=== PATIENT | female | born 1960 | race Caucasian/White ===

== ENCOUNTER → 2020-01-18 10:08 | Outpatient (CLI) | payer OTHER, SELFPAY ==
--- NOTE | ~2020-01-18 | MM_ITS ---
EXAMINATION: MM screening [facility] BI w elvis HISTORY: Screening mammogram TECHNIQUE: Craniocaudal and mediolateral oblique 3-D tomosynthesis images were obtained and synthetic 2-D images were generated. CAD analysis was submitted and interpreted. COMPARISON: Comparison to multiple prior studies sequentially, with oldest reviewed study dated 06/20. BREAST PARENCHYMAL COMPOSITION: There are scattered areas of fibroglandular density. FINDINGS: There is no evidence of suspicious mass, calcification, or architectural distortion to sugg est malignancy in either breast. There has been no suspicious interval change. IMPRESSION: 1. No mammographic evidence of malignancy. 2. Recommend routine screening mammography in one year. BI-RADS Category 1: Negative Reviewed, dictated and finalized at location A.
== END ==
PROVIDERS: PCP Internal Medicine; Visit Provider Nurse Practitioner Family
DX: Z12.31 Encounter for screening mammogram for malignant neoplasm of breast (principal)
CPT/HCPCS: 77063; 77067

== ENCOUNTER 2020-12-26 15:53 | Emergency (ER) | payer OTHER, SELFPAY ==
--- NOTE | ~2020-12-26 | CT_ITS ---
EXAMINATION: CT abdomen pelvis w con DATE: 12/26/2020 18:44 INDICATION: Abdominal pain. TECHNIQUE: Computed tomography (CT) of the abdomen and pelvis was performed with 100 mL Omnipaque-350 intravenous contrast. Automated exposure control and iterative reconstruction technique were employe d. The dose-length product was 383.28 mGy-cm. COMPARISON: None FINDINGS: Side nodule consistent with old granulomatous disease and 4 mm noncalcified nodule, both in the right lower lobe along a linear band of discoid atelectasis. Heart size is normal. No pericardial or pleur al effusion. Small sliding-type hiatal hernia. Mild wall thickening at the gastric pylorus. Liver, ga llbladder, spleen, pancreas, bilateral adrenal glands and kidneys are normal. Bowels including the ap pendix are normal. Bladder is normal. The uterus is not identified and has likely been surgically res ected. No free intraperitoneal gas or fluid. No pathologically enlarged abdominal or pelvic lymphaden opathy. Minimal lumbar spondylosis and mild bilateral hip osteoarthritis. IMPRESSION: 1. Mild wall thickening at the gastric pylorus which could be artifactual due to peristalsis/incomple te distention with differential including focal gastritis or peptic ulcer disease. 2. Small sliding-type hiatal hernia. 3. Indeterminate 4 mm right lower lobe nodule. If the patient is low risk for lung cancer, no follow- up is needed. If the patient is high risk (i.e., history of smoking or asbestos or significant radiat ion exposure), optional follow-up chest CT could be considered at 12 months. Reviewed, dictated and finalized at location A. IMPRESSION: 1. Mild wall thickening at the gastric pylorus which could be artifactual due t o peristalsis/incomplete distention with differential including focal gastritis or peptic ulcer disease. 2. Small sliding-type hiatal hernia. 3. Indeterminate 4 mm right lower lobe nodule. If the patient is low risk for l jerome cancer, no follow-up is needed. If the patient is high risk (i.e., history of smoking or asbestos or significant radiation exposure), optional follow-up c hest CT could be considered at 12 months.
[2020-12-26 16:15] VITALS: BP 126/76; PULSE 78; RESP 18; TEMP 36.2; O2SAT 99
[2020-12-26 16:25] LABS: Basophils Absolute Auto 0.1 K/mm3 (0.0-0.1); Basophils Percent Auto 1.2 % (0.2-1.2); Eosinophils Absolute Auto 0.1 K/mm3 (0-0.3); Eosinophils Percent Auto 2.2 % (0-4.4); Hematocrit 39.3 % (37.0-47.0); Hemoglobin 12.5 g/dL (12.0-15.0); Immature Granulocyte Absolute 0.02 K/mm3 (0.00-0.031); Immature Granulocyte Percent A 0.4 % (0-0.5); Lymphocytes Absolute Auto 2.09 K/mm3 (0.9-3.2); Lymphocytes Percent Auto 41.1 % (18.3-44.2); Mean Corpuscular HGB Conc 31.8 g/dl (32-36); Mean Corpuscular Hemoglobin 26.8 pg (26-34); Mean Corpuscular Volume 84.3 fl (80-100); Mean Platelet Volume 8.7 fl (7.4-10.4); Monocytes Absolute Auto 0.4 K/mm3 (0.1-0.6); Monocytes Percent Auto 8.4 % (2.6-8.5); Neutrophils Absolute Auto 2.4 K/mm3 (1.3-6.7); Neutrophils Percent Auto 46.7 % (45.5-73.1); Platelet Count Result 220 k/mm3 (150-375); Red Blood Count 4.66 M/mm3 (4.2-5.4); Red Cell Distribution Width 12.8 % (11.5-14.5); White Blood Count 5.1 K/mm3 (4.5-10.0)
[2020-12-26 16:30] LABS: Add Urine Microscopic? YES; Appearance Urine Clear (Clear); Bilirubin Urine Negative (Negative); Blood Urine Negative (Negative); Color Urine Yellow (Yellow); Glucose Urine UA Negative (Negative); Ketones Urine Trace mg/dL (Negative); Leukocyte Esterase Ur Negative LEU/UL (Negative); Mucus Urine Rare /lpf; Nitrate Urine Negative (Negative); Protein Urine Negative (Negative); RBC Urine 0-2 /hpf (0-2); Specific Grav Ur 1.028 (1.001-1.035); Squamous Epithelial Cell Urine Rare /hpf (Few); WBC Urine 0-3 /hpf
[2020-12-26 16:36] LABS: Alanine Aminotransferase 17 U/L (4-35); Albumin Level 4.5 g/dL (3.5-5.1); Alkaline Phosphatase 60 U/L (38-126); Anion Gap 8 mmol/L (8-16); Aspartate Amino Transferase 28 U/L (14-36); Bilirubin,Total 0.3 mg/dL (0.2-1.3); Blood Urea Nitrogen 21 mg/dL (7-17); Calcium 9.8 mg/dL (8.4-10.2); Carbon Dioxide 26 mmol/L (22-30); Chloride 108 mmol/L (98-107); Estimated CRCL calculation 71 ml/min; Estimated Glomerular Filt Rate > 60; Glucose 113 mg/dL (65-105); Lipase 140 U/L (23-300); Potassium 3.8 mmol/L (3.4-5.0); Sodium 142 mmol/L (137-145)
[2020-12-26 17:34] VITALS: BP 140/75; PULSE 76; RESP 16; O2SAT 99
--- NOTE | 2020-12-26 17:51 | ED.ABDPAIN ---
HPI - Abdominal Pain General Chief Complaint: Abdominal Pain Stated Complaint: flank pain Time Seen by Provider: 12/26/20 17:34 Source: patient History of Present Illness HPI narrative: Patient is a 60 y/o female complaining of low back pain, lower abdominal pain starting 5 days ago. She describes her pain as sharp and aching. She took Ibuprofen and Hydrocodone which did not help. She rates her pain as 7/10. She has some nausea, but no vomiting. She has no dysuria or hematuria. Related Data Allergies Allergy/AdvReac Type Severity Reaction Status Date / Time povidone Allergy Mild Rash Verified 03/02/20 12:21 povidone-iodine Allergy Mild Verified 03/02/20 12:21 soap Allergy Mild Verified 03/02/20 12:21 Sulfa (Sulfonamide Allergy Mild unknown Verified 03/02/20 12:21 Antibiotics) erythromycin base Allergy Unknown Verified 03/02/20 12:21 iodine Allergy Unknown Verified 03/02/20 12:21 latex Allergy Unknown Verified 03/02/20 12:21 Penicillins Allergy Unknown Verified 03/02/20 12:21 Review of Systems Constitutional: Constitutional: Denies chills, Denies fever(s), Denies headache(s) and Denies weakness Eyes: Eyes: Denies blurry vision ENT: Denies headache(s) and Denies neck pain Cardiovascular: Cardiovascular: Denies chest pain and Denies dyspnea Respiratory: Respiratory: Denies cough and Denies dyspnea Gastrointestinal: Gastrointestinal: Reports abdominal pain, Denies diarrhea, Denies nausea and Denies vomiting Genitourinary: Genitourinary: Denies hematuria and Denies dysuria Musculoskeletal: Musculoskeletal: Reports back pain and Denies neck pain Neurologic: Denies headache(s) and Denies weakness [facility] Family History Family History Other Cerebrovascular accident Depression Diabetes mellitus Family history of alcoholism Family history of arthritis Family history of chronic obstructive pulmonary disease Family history of congestive heart failure Family history of mental disorder Family history of osteoporosis Family history of pancreatic cancer Social History Social History Smoking status: Never smoker Alcohol intake: never Exam Const: General: no acute distress and well developed Orientation/consciousness: oriented to person, oriented to place, oriented to time and patient oriented x3 HENMT: Head: normocephalic Ears: external ears normal General nose exam: Normal external nose present Eyes: General: appearance normal, both eyes and all related structures Conjunctivae: conjunctivae normal Neck: Neck: normal visual inspection and full ROM Chest: Chest palpation & inspection: normal inspection of the chest and no tenderness Resp: Effort & Inspection: normal respiratory effort Auscultation: clear to auscultation bilaterally Cardio: Rate: regular rate Rhythm: regular rhythm GI: GI Palp: No abdominal tenderness and Yes Soft to palpation Skin: General skin exam: normal color and turgor normal Neuro: General: oriented to person, oriented to place, oriented to time and patient oriented x3 Cognition (Neuro): normal cognition Extrem: General: normal to inspection, full ROM and no pedal edema Psych: Appearance: grossly normal Mental Status: mental status grossly normal Affect: normal affect Course Reevaluation(s) Reevaluation #1: Discussed with patient about test results, including CT showing pulmonary nodule and possible ulcer/hiatal hernia. She is instructed to follow up with PCP. Date: 12/26/20 Time: 20:12 Vital Signs Vital signs: Vital Signs Temperature 36.2 C L 12/26/20 16:15 Pulse Rate 78 12/26/20 16:15 Respiratory Rate 18 12/26/20 16:15 Blood Pressure 126/76 12/26/20 16:15 Pulse Oximetry 99 12/26/20 16:15 Temperature 36.2 C L 12/26/20 16:15 Pulse Rate 85 12/26/20 20:18 Respiratory Rate 16 12/26/20 20:18 Blood Pressure 131/75 12/26/20
[2020-12-26] MEDS: KETOROLAC 30 MG/ML VIAL (*BKC) IV PUSH (18:20)
[2020-12-26 20:18] VITALS: BP 131/75; PULSE 85; RESP 16; O2SAT 98
== END 2020-12-26 20:24 | disposition home or self-care (01) ==
PROVIDERS: Emergency Medicine; Emergency Provider Emergency Medicine; PCP Internal Medicine
DX: R10.30 Lower abdominal pain, unspecified (principal); M54.5 Low back pain; R91.1 Solitary pulmonary nodule; K44.9 Diaphragmatic hernia without obstruction or gangrene
CPT/HCPCS: 36415; 74177; 80053; 81001; 83690; 85025; 96374; 99284; J1885; Q9967

== ENCOUNTER → 2021-02-21 16:05 | Outpatient (CLI) | payer OTHER, SELFPAY ==
--- NOTE | ~2021-02-21 | MM_ITS ---
EXAMINATION: MM screening [facility] BI w elvis HISTORY: Screening TECHNIQUE: Craniocaudal and mediolateral oblique 3-D tomosynthesis images were obtained and synthetic 2-D images were generated. CAD analysis was submitted and interpreted. COMPARISON: Comparison to multiple prior studies sequentially, with oldest reviewed study dated 09/15. BREAST PARENCHYMAL COMPOSITION: There are scattered areas of fibroglandular density. FINDINGS: There is no evidence of suspicious mass, calcification, or architectural distortion to sugg est malignancy in either breast. There has been no suspicious interval change. IMPRESSION: 1. No mammographic evidence of malignancy. 2. Recommend routine screening mammography in one year. BI-RADS Category 1: Negative Reviewed, dictated and finalized at location A.
== END ==
PROVIDERS: Visit Provider Nurse Practitioner
DX: Z12.31 Encounter for screening mammogram for malignant neoplasm of breast (principal)
CPT/HCPCS: 77063; 77067

== ENCOUNTER → 2021-10-09 00:23 | Outpatient (CLI) | payer OTHER, SELFPAY ==
[2021-10-09 11:15] LABS: SARS-CoV-2 RNA PCR Negative
== END ==
PROVIDERS: PCP Internal Medicine; Visit Provider Internal Medicine Gastroenterology
DX: Z01.812 Encounter for preprocedural laboratory examination (principal); Z20.822 Contact with and (suspected) exposure to COVID-19
CPT/HCPCS: C9803; U0003; U0005

== ENCOUNTER 2021-10-12 01:11 | Day surgery (SDC) | payer OTHER, SELFPAY ==
[2021-10-03 11:05] VITALS: BMI 23.4
--- NOTE | 2021-10-11 12:35 | PM.HPGS ---
History of Present Illness History of Present Illness Consent: Risks, benefits, and alternatives have been discussed and questions answered. Patient agrees to proceed with procedure. Chief complaint: neoplasm screening Narrative: Sheba Jennings is a 61 year old female referred for colon cancer screening. Her uncle had colon cancer. Her father had pancreatic cancer Review of Systems Review of Systems: All systems reviewed & are unremarkable except as noted in HPI and below PMFSH Family History Family History Other Cerebrovascular accident Depression Diabetes mellitus Family history of alcoholism Family history of arthritis Family history of chronic obstructive pulmonary disease Family history of congestive heart failure Family history of mental disorder Family history of osteoporosis Family history of pancreatic cancer Social History Social History Smoking status: Former smoker Tobacco type: cigarettes Alcohol intake: former Living arrangements: with family Spiritual care concerns: No Meds Home Medications and Allergies Home Medications Medication Instructions Recorded Confirmed Type Symbicort 2 inh PO DAILY 10/03/21 10/12/21 History albuterol sulfate 1 puff INHALATION QID PRN 10/03/21 10/12/21 History calcium carbonate-vitamin D3 1 tablet PO DAILY 10/03/21 10/12/21 History [calcium-vitamin D3] cranberry extract 250 mg PO DAILY 10/03/21 10/12/21 History escitalopram oxalate 10 mg PO DAILY 10/03/21 10/12/21 History ferrous sulfate 325 mg PO DAILY 10/03/21 10/12/21 History fluticasone propionate 1 spray INTRANASAL EVERY OTHER DAY 10/03/21 10/12/21 History metformin 500 mg PO BID 10/03/21 10/12/21 History omeprazole 20 mg PO DAILY 10/03/21 10/12/21 History rosuvastatin 40 mg PO DAILY 10/03/21 10/12/21 History sodium chloride [[place] Nasal] 1 spray INTRANASAL EVERY OTHER DAY 10/03/21 10/12/21 History vitamin E 100 unit PO DAILY 10/03/21 10/12/21 History Allergies Allergy/AdvReac Type Severity Reaction Status Date / Time povidone-iodine Allergy Mild Rash Verified 10/12/21 09:04 Sulfa (Sulfonamide Allergy Mild Itching Verified 10/12/21 09:04 Antibiotics) erythromycin base Allergy Unknown Other Verified 10/12/21 09:04 latex Allergy Unknown Rash Verified 10/12/21 09:04 Penicillins Allergy Unknown Itching Verified 10/12/21 09:04 COVID-19 (SARS-CoV-2) Allergy Numbness Verified 10/12/21 09:04 vaccine, gio Exam Resp: Auscultation: clear to auscultation bilaterally Cardio: Rate: regular rate Rhythm: regular rhythm GI: GI Palp: Yes Soft to palpation and No Tenderness to palpation present (GI) Assessment and Plan Assessment and plan (1) Colon cancer screening: Code(s): Z12.11 - Encounter for screening for malignant neoplasm of colon Status: Acute Assessment and Plan: Colonoscopy with possible biopsy or polypectomy or cautery or injection of substances.
[2021-10-12 09:05] VITALS: BP 132/73; PULSE 85; RESP 18; TEMP 36.5; O2SAT 97; BMI 23.1
[2021-10-12] MEDS: LACTATED RINGERS 1,000 ML 150 ML IV CONT (09:09)
[2021-10-12 09:21] LABS: Glucose Point of Care 136 mg/dl (65-105)
--- NOTE | 2021-10-12 09:40 | WPDANESEPPF ---
Anes - Initial Pre Proc Eval Procedure: Operation Date: 10/12/21 10:00 Proposed Procedures p Screening Colonoscopy - Kings Church MD Date/Time: 10/12/21 09:40 Surgeon: Kings Church MD Pre Op Diagnosis: neoplasm screening Patient Data Age: 61 Gender: F Height: 1.65 m Weight: 63.2 kg Last Vital Signs Temp 36.5 C 10/12/21 09:05 Pulse 85 10/12/21 09:05 Resp 18 10/12/21 09:05 BP 132/73 10/12/21 09:05 Pulse Ox 97 10/12/21 09:05 Allergies Allergy/AdvReac Type Severity Reaction Status Date / Time povidone-iodine Allergy Mild Rash Verified 10/12/21 09:04 Sulfa (Sulfonamide Allergy Mild Itching Verified 10/12/21 09:04 Antibiotics) erythromycin base Allergy Unknown Other Verified 10/12/21 09:04 latex Allergy Unknown Rash Verified 10/12/21 09:04 Penicillins Allergy Unknown Itching Verified 10/12/21 09:04 COVID-19 (SARS-CoV-2) Allergy Numbness Verified 10/12/21 09:04 vaccine, gio Home Medications Medication Instructions Recorded Confirmed Type Symbicort 2 inh PO DAILY 10/03/21 10/12/21 History albuterol sulfate 1 puff INHALATION QID PRN 10/03/21 10/12/21 History calcium carbonate-vitamin D3 1 tablet PO DAILY 10/03/21 10/12/21 History [calcium-vitamin D3] cranberry extract 250 mg PO DAILY 10/03/21 10/12/21 History escitalopram oxalate 10 mg PO DAILY 10/03/21 10/12/21 History ferrous sulfate 325 mg PO DAILY 10/03/21 10/12/21 History fluticasone propionate 1 spray INTRANASAL EVERY OTHER DAY 10/03/21 10/12/21 History metformin 500 mg PO BID 10/03/21 10/12/21 History omeprazole 20 mg PO DAILY 10/03/21 10/12/21 History rosuvastatin 40 mg PO DAILY 10/03/21 10/12/21 History sodium chloride [[place] Nasal] 1 spray INTRANASAL EVERY OTHER DAY 10/03/21 10/12/21 History vitamin E 100 unit PO DAILY 03/16/22 03/25/22 History Laboratory Tests 10/12/21 09:19 POC Capillary Glucose 136 mg/dl H mg/dl (65-105) Patient hx anesthesia problems: none Family hx anesthesia problems: none Results Review: All pre-operative results and documents have been reviewed as part of the pre-operative evaluation. [facility] Past Medical History Medical History Anxiety Asthma Diabetes GERD (gastroesophageal reflux disease) Hx of migraines Hyperlipidemia TIA (transient ischemic attack) Family History Family History Other Cerebrovascular accident Depression Diabetes mellitus Family history of alcoholism Family history of arthritis Family history of chronic obstructive pulmonary disease Family history of congestive heart failure Family history of mental disorder Family history of osteoporosis Family history of pancreatic cancer Social History Social History Smoking status: Former smoker Tobacco type: cigarettes Alcohol intake: former Living arrangements: with family Spiritual care concerns: No Anes - Eval Final PreProcedure Day of Procedure 10/12/21 09:40 Patient weight: normal Heart: regular rate and rhythm Lungs: clear to auscultation Airway: Mallampati scale class II Neurological: alert and oriented Last oral intake: >/= 8 hours ASA classification: III Emergent: no Anesthetic plan: proceed Anesthesia type and monitoring: general GIVS and standard monitoring Results Review: All pre-operative results and documents have been reviewed as part of the pre-operative evaluation. Informed Consent: The patient's anesthetic plan and its attendant risks and benefits were discussed with the patient/family/POA. Questions were solicited and answers provided to the satisfaction of the patient/family/POA.
[2021-10-12 10:11] VITALS: BP 109/66; PULSE 76; RESP 18; O2SAT 98
[2021-10-12 10:21] VITALS: BP 119/73; PULSE 72; RESP 20; O2SAT 100
[2021-10-12 10:31] VITALS: BP 132/64; PULSE 78; RESP 18; O2SAT 100
== END 2021-10-12 10:45 | disposition home or self-care (01) ==
PROVIDERS: PCP Internal Medicine; Visit Provider Internal Medicine Gastroenterology
PROC: 0DJD8ZZ Inspection of Lower Intestinal Tract, Via Natural or Artificial Opening Endoscopic (ICD-10-PCS; CPT 45378; principal; 2021-10-12 10:00)
DX: Z12.11 Encounter for screening for malignant neoplasm of colon (principal); Z80.0 Family history of malignant neoplasm of digestive organs; Z86.16 Personal history of COVID-19; Z79.84 Long term (current) use of oral hypoglycemic drugs; Z79.51 Long term (current) use of inhaled steroids; F41.9 Anxiety disorder, unspecified; K21.9 Gastro-esophageal reflux disease without esophagitis; J45.909 Unspecified asthma, uncomplicated; E11.9 Type 2 diabetes mellitus without complications; Z86.73 Personal history of transient ischemic attack (TIA), and cerebral infarction without residual deficits; E78.5 Hyperlipidemia, unspecified; Z87.891 Personal history of nicotine dependence
CPT/HCPCS: 45378; 82948; C9803; J2704; J7120; U0003; U0005

== ENCOUNTER 2022-08-14 16:08 | Outpatient (CLI) | payer OTHER, SELFPAY ==
--- NOTE | ~2022-08-14 | MM_ITS ---
EXAMINATION: MM screening [facility] BI w elvis HISTORY: Screening mammogram TECHNIQUE: Craniocaudal and mediolateral oblique 3-D tomosynthesis images were obtained and synthetic 2-D images were generated. CAD analysis was submitted and interpreted. COMPARISON: 02/21/2021, 01/18/2020, 10/06/2018 BREAST PARENCHYMAL COMPOSITION: There are scattered areas of fibroglandular density. FINDINGS: No suspicious mass, calcification, or architectural distortion are identified in either mikal ast to suggest malignancy. There has been no suspicious interval change. IMPRESSION: 1. No mammographic evidence of malignancy. 2. Recommend routine screening mammography in one year. BI-RADS Category 1: Negative Reviewed, dictated and finalized at location A. RT AND EXPORT CLERK
== END 2022-08-14 16:09 | disposition home or self-care (01) ==
LOC: ANHIMG 16:26
PROVIDERS: PCP Internal Medicine; Visit Provider Nurse Practitioner
DX: Z12.31 Encounter for screening mammogram for malignant neoplasm of breast (principal)
CPT/HCPCS: 77063; 77067

== ENCOUNTER 2023-10-03 15:59 | Outpatient (CLI) | payer OTHER, SELFPAY ==
--- NOTE | ~2023-10-03 | MM_ITS ---
EXAMINATION: MM screening [facility] w elvis HISTORY: Screening TECHNIQUE: Craniocaudal and mediolateral oblique 3-D tomosynthesis images were obtained and synthetic 2-D images were generated. CAD analysis was submitted and interpreted. COMPARISON: Comparison to multiple prior studies sequentially, with oldest reviewed study dated 09/2015. BREAST PARENCHYMAL COMPOSITION: Not dense: There are scattered areas of fibroglandular density. FINDINGS: There is no evidence of suspicious mass, calcification, or architectural distortion to sugg est malignancy in either breast. There has been no suspicious interval change. IMPRESSION: 1. No mammographic evidence of malignancy. 2. Recommend routine screening mammography in one year. BI-RADS Category 1: Negative Reviewed, dictated and finalized at location A.
== END 2023-10-03 16:00 ==
LOC: MICIMG 16:00
PROVIDERS: PCP Internal Medicine; Visit Provider Obstetrics & Gynecology Gynecology
DX: Z12.31 Encounter for screening mammogram for malignant neoplasm of breast (principal)
CPT/HCPCS: 77063; 77067

== ENCOUNTER 2024-08-25 11:39 | Outpatient (CLI) | payer OTHER, SELFPAY ==
[2024-08-25 12:29] LABS: Strep Group A RT-PCR NOT DETECTED (Negative)
[2024-08-25 12:41] LABS: Influenza A QL RT-PCR Negative (Negative); Influenza B QL RT-PCR Negative (Negative); SARS-CoV-2 RNA PCR Positive (Negative)
--- OUTSIDE RECORDS SUMMARY | 2024-08-25 13:11 | XMS_ITS | Clinical Summary ---
Author Organization [facility] [employer] Address [address] [place] [address] Care Team Providers Care Pattern Scratcher Name Role Phone Johanna Shaw MD Primary Care Provider Source Comments [facility],non-owned Affiliates and Associated Physician Practices is amultiple site organization consisting of ambulatory clinics and hospital sitesin [place], [place], [place] and [place]. This disclosure is being madepursuant to the Care Everywhere program and may not contain all information available regarding this patient. Last updated 18.[facility] [employer] Allergies Active Allergy Reactions Criticality Noted Date Comments Amoxicillin Unknown 02/03/2019 Erythromycin Unknown 02/03/2019 Latex Unknown 02/03/2019 Povidone Iodine Unknown 06/28/2020 Sulfa Drugs Unknown 02/03/2019 Medications * Be aware that medications may not be up to date on this document. Alwaysverify current medications with the patient. Medication Sig Dispensed Refills Start Date End Date Status escitalopram (LEXAPRO) 10 MG tablet PLEASE SEE ATTACHED FOR DETAILED DIRECTIONS 05/27/2020 Active fenofibrate (TRICOR) 145 MG tablet every 24 hours 01/24/2020 Active EPINEPHrine (EPIPEN) 0.3 MG/0.3ML auto-injector pen epinephrine 0.3 mg/0.3 mL injection, auto-injector Active cetirizine (ZYRTEC) 10 MG tablet Take 10 mg by mouth once daily Active albuterol HFA (PROVENTIL;VENTOLIN ;PROAIR) 108 (90 Base) MCG/ACT inhaler albuterol sulfate HFA 90 mcg/actuation aerosol inhaler INHALE 2 PUFF(S) EVERY 4 HOURS BY INHALATION ROUTE NEEDED Active denosumab (PROLIA) 60 MG/ML SC injection Inject 60 mg subcutaneously once Active metFORMIN (GLUCOPHAGE) 500 MG tablet Take 500 mg by mouth 2 times daily with morning and evening meal Active budesonide-formoter ol (SYMBICORT) 80-4.5 MCG/ACT inhalerIndications: Mild persistent reactive airway disease without complication (HCC) Inhale 2 (two) puffs by mouth 2 times daily 10.2 g 3 05/29/2021 Active Active Problems Problem Noted Date Diagnosed Date Non-seasonal allergic rhinitis 06/28/2020 Irritant contact dermatitis 06/28/2020 Adverse food reaction 06/28/2020 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 (F LUZONE; FLULAVAL; FLUARIX; AFLURIA QUADRIVALENT; 6MO+), 0.5 ML (IIV4) 04/24/2020,06/22/2015 Social History Tobacco Use Types Packs/Day Years Used Date Smoking Tobacco: Never Assessed PHQ-2 Answer Date Recorded PHQ2 TOTAL SCORE 0 01/11/2021 Sex and Gender Information Value Date Recorded Sex Assigned at Not on file Gender Identity Not on file Sexual Orientation Not on file Plan of Treatment Health Maintenance Due Date Last Done Comments COLOGUARD (AGES 45-75) - COL ON CA SCREENING 1962 COLON MONITORING 1962 COLONOSCOPY - COLON CA SCREENING 1962 CT COLONOGRAPHY - COLON CA SCREENING 1962 Colorectal Cancer Screening 1962 FIT - COLON CA SCREENING 1962 FLEX SIG - COLON CA SCREENING 1962 LIPID TESTING 1962 MAMMOGRAM 1962 PAP SMEAR 1962 HIV SCREENING 1977 HEPATITIS C SCREENING 01/12/1980 DTAP/TDAP/TD VACCINES (1 - Tdap) 1981 PNEUMOCOCCAL VACCINE 50+ (1 of 2 - PCV) 1981 PNEUMOCOCCAL VACCINE (1 of 2 - PCV) 1981 ZOSTER VACCINE (1 of 2) 01/17/2012 Respiratory Syncytial Virus (RSV) Vaccine Pt: or over 60 yrs (1 - Risk 60-74 years 1-dose series) 2022 COVID-19 VACCINE (1 - 2023-2 5 season) 2024 INFLUENZA VACCINE (#1) 2024 0, 06/22/2015, 06/08/2013 DEPRESSION SCREENING 07/21/2024 HEPATITIS B VACCINE Aged Out No longe r eligible based on patient's age to complete this topic HIB VACCINE Aged Out No longer eligi ble based on patient's age to complete this topic HPV VACCINE Aged Out No longer eligi ble based on patient's age to complete this topic MENINGOCOCCAL (Group B) VACCINE Aged Out No longer eligible b ased on patient's age to complete this topic MENINGOCOCCAL VACCINE Aged Out No merritt ning eligible based on patient's age to complete this topic Care Teams Pattern Scratcher Relationship Specialty Start Date End Date Johanna Shaw MD [address] [place] [address] PCP - General 03/16/20
--- OUTSIDE RECORDS SUMMARY | 2024-08-25 13:11 | XMS_ITS | Clinical Summary ---
Author Organization [facility] Address [address] [address] Care Team Providers Care Hydraulic Punch Press Operator Name Role Phone Griselda Shaw MD Primary Care Provide r Allergies Active Allergy Reactions Criticality Noted Date Comments Amoxicillin Itching Low 02/03/2019 Erythromycin Base Unknown Low 02/03/2019 States it gave her a UTI Latex, Natural Rubber Itching,Rash Medium 02/03/2019 Covid-19 Vacc,Mrna(Pfizer)(Pf) Other (See comments),Flushing (skin) Low 12/27/2020 Instant headache, high blood pressure, numbness in face Povidone-Iodine Itching,Rash Medium Metoclopramide Other (See comments) Low 09/08/2020 Gave her a panic attack Sulfa (Sulfonamide Antibiotics) Unknown Low 02/03/2019 Medications cetirizine (ZyrTEC) 10 mg tabletIndications: Allergic Conjunctivitis Take 1 tablet (10 mg total) by mouth every morning Active omeprazole (PriLOSEC) 20 mg capsule Take 2 capsules (40 mg total) by mouth every morning Active albuterol HFA (PROVENTIL HFA,VENTOLIN HFA,PROAIR HFA) 90 mcg/actuation inhaler Inhale 2 puffs as needed for shortness of breath Active ALPRAZolam (XANAX) 0.5 mg tabletIndications: Panic Disorder Take 0.5 mg by mouth as needed for anxiety Active EPINEPHrine 0.3 mg/0.3 mL auto-injection syringe epinephrine 0.3 mg/0.3 mL injection, auto-injector Active escitalopram (LEXAPRO) 10 mg tabletIndications: Anxiety with Depression Take 1 tablet (10 mg total) by mouth nightly Active fluticasone propionate (FLONASE) 50 mcg/actuation nasal spray Administer 1 spray into each nostril every other day Active budesonide-formote roL (SYMBICORT) 80-4.5 mcg/actuation inhalerIndications :Maintenance Therapy for Asthma Inhale 2 puffs every morning Active rosuvastatin (CRESTOR) 20 mg tabletIndications: hyperlipidemia Take 2 tablets (40 mg total) by mouth nightly Active ferrous sulfate 325 mg (65 mg of elemental iron) tabletIndications: Iron Deficiency Anemia Take 1 tablet (325 mg total) by mouth daily with breakfast Active cyanocobalamin, vitamin B-12, (VITAMIN B-12 ORAL) Take 1 tablet by mouth every other day Active metformin HCl (METFORMIN ORAL) Take 1 tablet by mouth 2 (two) times a day Active Qulipta 30 mg tablet Take 1 tablet by mouth daily 01/06/20 24 Active atogepant (Qulipta) 10 mg tablet daily Active OneTouch Verio test strips strip USE TO TEST BLOOD GLUCOSE ONCE DAILY 12/18/19 24 Active dexAMETHasone (DECADRON) 4 mg tablet TAKE 1 TABLET BY MOUTH WHEN FILLED, 1 TAB BEFORE BED, AND 1 TAB EVERYDAY FOR 3 DAYS DIRECTED 12/30/19 24 Active OneTouch Delica Plus Lancet 30 gauge misc USE TO TEST BLOOD GLUCOSE ONCE DAILY 12/28/19 24 Active Active Problems Problem Noted Date Diagnosed Date Lateral epicondylitis 09/08/2020 Lesion of ulnar nerve 09/08/2020 Irritant contact dermatitis 06/28/2020 Reactive airway disease 06/28/2020 Urticaria 06/28/2020 Age-related osteoporosis wit hout current pathological fracture 06/07/2019 Hyperlipidemia 03/05/2019 Chronic pharyngitis 09/18/2018 Abnormal mammogram 04/11/2010 Mass of breast 04/09/2010 Encounters Date Type Department Care Team Description 07/09/2024 4:41 PM CROZER OPERATOR - 07/09/2024 11:59 PM CROZER OPERATOR Hospital Encounter [facility] Radiology at [facility] [address] [place] [address] Hyperparathyroidism , unspecified (HCC) Discharge Disposition: Discharge to home or self care 07/09/2024 Orders Only [facility] Radiology at [facility] [address] [place] [address] Antonia Stokes RN 07/01/2024 Orders Only [facility] Health Information Management [address] [place] [address] Scanning, Provider 06/30/2024 Telephone [facility] [address] [facility] Medical Office Building [address] [place] [address] Estefani Ervin MD from Last 3 Months Surgical History Surgery Date Site/Laterality Comments PARTIAL HYSTERECTOMY CARPAL TUNNEL RELEASE ULNAR NERVE REPAIR Medical History Medical History Date Comments GERD (gastroesophageal reflux disease) Delayed emergence from gener al anesthesia difficulty coming out of ane sthesia- experienced during most recent colonoscopy this past august Family History Medical History Relation Name Comments Broken bones Mother Osteoporosis Mother CVA Paternal Grandfather Heart failure Paternal Grandfather Hip fracture Neg Hx Kyphosis Neg Hx Scoliosis Neg Hx Relation Name Status Comments Mother Paternal Grandfather Social History Tobacco Use Types Packs/Day Years Used Date Smoking Tobacco: Former Cigarettes 0.3 10 1 981 - 1990 Smokeless Tobacco: Never Tobacco Cessation:Counseling Given: Not Answered Comments:30 years ago AUDIT-C Answer Date Recorded Q1: How often do you have a drink containing alc ohol? Never 01/29/2022 Average Number of Drinks Not on file 022 Q3: How often do you have si x or more drinks on one occasion? Never 01/29/2022 Comments No Sex and Gender Information Value Date Recorded Sex Assigned at Not on file Legal Sex Female 3:01 AM CROZER OPERATOR Gender Identity Not on file Sexual Orientation Not on file Obstetrics History Last Filed Vital Signs Vital Sign Reading Time Taken Comments Blood Pressure 138/73 03/02/2024 1:18 PM CDT Pulse 85 03/02/2024 1:18 PM CDT Temperature 36.7 ??C (98 ??F) 03/02/2024 1:18 PM CDT Respiratory Rate 14 01/29/2022 2:40 PM CDT Oxygen Saturation 95% 01/29/2022 2:40 PM CDT Inhaled Oxygen Concentration - - Weight 64.9 kg (143 lb) 01/07/2024 2:56 PM CDT Height 166.4 cm (5' 5.5 ) 01/07/2024 2:56 PM CDT Body Mass Index 23.43 01/07/2024 2:56 PM CDT Plan of Treatment Health Maintenance Due Date Last Done Comments Breast Cancer Screening-Mammogram 1962 Cervical Cancer Screening 1962 Colon Cancer Screening-Colonoscopy 1962 Depression Screening 1962 Hepatitis C Screening 1962 Dilated Eye Exam 1962 Foot Exam 1962 Lipid Panel 1962 Pneumococcal vaccine <65 (1 of 2 - PCV) 01/17/1968 DTaP/Tdap/Td Vaccine (1 - Tdap) 1973 Hepatitis B Screening 01/17/1980 Regular Well Visit/Exam 18-64 01/17/1980 Zoster Vaccine (1 of 2) 01/17/2012 Hemoglobin A1C 07/28/2022 01/25/2022 Albumin Creatinine Ratio, Urine 01/13/2025 eGFR 02/03/2025 02/04/2024, 0612/2023, 10/15/2022, Additional history exists Influenza Vaccine Completed 05/13/2024, , 04/24/2020, Additional history exists Procedures Procedure Name Priority Date/Time Associated Diagnosis Comments CT ABDOMEN W WO CONTRAST Schedule Routine, Read Routine (OP Routine) 07/09/2024 5:25 PM CROZER OPERATOR Hyperparathyroidis m, unspecified (HCC) POCT CREATININE - DEVICE Routine 07/09/2024 4:52 PM CROZER OPERATOR SCAN - OTHER ORDERS 07/01/2024 11:31 AM CROZER OPERATOR EGFR Routine 02/04/2024 12:32 PM CDT Hypercalcemia ALBUMIN CREATININE RATIO, URINE Routine 01/14/2024 12:30 PM CDT Type 2 diabetes mellitus with other specified complication, without long-term current use of insulin (HCC) POCT HEMOGLOBIN A1C Routine 01/25/2022 11:24 AM CDT from Last 3 Months or Most Recently Relevant to Health Maintenance Results * CT Abdomen W WO Contrast (07/09/2024 5:25 PM CROZER OPERATOR) Anatomical Region Laterality Modality Body N/A Computed Tomogra phy 07/11/2024 1:56 PM CROZER OPERATOR Impressions 07/11/2024 1:56 PM CROZER OPERATOR 1. ??No adrenal lesions. Electronically signed by: Dariel Quintanilla M.D. Narrative 07/11/2024 1:56 PM CROZER OPERATOR Examination: Computed tomography of the abdomen with and without intravenous contrast DATE: 07/09/2024. HISTORY: Hyperparathyroidism. TECHNIQUE: Computed tomography of the abdomen was obtained before and after the uneventful administration of 93 mL of Optiray 350 according to standard protocol. FINDINGS: No prior studies are available for comparison. ??There are no adrenal nodules. ??Included portions of the liver, gallbladder, kidneys, spleen, and pancreas are normal. ??Included bowel is normal. Lung bases are clear. Bone windows demonstrate no lytic or blastic lesions. Procedure Note Dariel Quintanilla MD - 07/11/2024 Examination: Computed tomography of the abdomen with and without intravenous contrast DATE: 07/09/2024. HISTORY: Hyperparathyroidism. TECHNIQUE: Computed tomography of the abdomen was obtained before and after the uneventful administration of 93 mL of Optiray 350 according to standard protocol. FINDINGS: No prior studies are available for comparison. There are no adrenal nodules. Included portions of the liver, gallbladder, kidneys, spleen, and pancreas are normal. Included bowel is normal. Lung bases are clear. Bone windows demonstrate no lytic or blastic lesions. IMPRESSION: 1. No adrenal lesions. Electronically signed by: Dariel Quintanilla M.D. Verenice Givens MD IMG CT PROCEDURES Final R esult * POCT creatinine (07/09/2024 4:52 PM CROZER OPERATOR) Creatinine POC 0.7 0.6 - 1.1 mg/dL Blood 07/09/2024 4:52 PM CROZER OPERATOR 07/09/2024 4:52 PM CROZER OPERATOR Verenice Givens MD LAB POCT ORDERABLES - DEV ICE Final Result [facility] Department [place] [address] * SCAN - OTHER ORDERS (07/01/2024 11:31 AM CROZER OPERATOR) Provider Scanning Final Result * eGFR (02/04/2024 12:32 PM CDT) eGFR >90 >=60 mL/min/1. 73 m2 Comment: Interpretive Data Reference Interval Normal ?>/= 90 mL/min/1.73m2 Mildly decreased* ? 60 - 89 mL/min/1.73m2 Mildly to moderately decreased ?45 - 59 mL/min/1.73m2 Moderately to severely decreased ??30 - 44 mL/min/1.73m2 Severely decreased ?15 - 29 mL/min/1.73m2 Kidney Failure ?< 15 ??mL/min/1.73m2 *Relative to young adult level Estimated glomerular filtration rate is determined by the 2020 CKD-EPI equation recommended by the National Kidney Foundation (A Unifying Approach to GFR Estimation: Recommendations of the NKF-ASK Task Force on Reassessing the Inclusion of Race in Diagnosing Kidney Disease, JASN 202). The CKD-EPI equation should not be used for patients with unstable renal function and has not been validated in children and those over 70. Current interpretive data was last reviewed 2021. Blood 02/04/2024 12:3 2 PM CDT 02/04/2024 12:56 PM CDT Estefani Ervin MD LAB BLOOD ORDERABLES Final Re sult Performing Organization Address City/[facility] Co de Phone Number [facility] GARCIA [address] [place] [address] * Albumin Creatinine Ratio, Urine (01/14/2024 12:30 PM CDT) Albumin Ur 13.0 mg/L Comment: Interpretive Data No reference range established. Current interpretive data was last revised 2018. Testing performed by: [facility], [address] [place] [address]., [id number] Creatinine Ur 191.7 mg/dL [facility] Comment: Interpretive Data No reference range established. Current interpretive data was last revised 2018. Testing performed by: [facility], [address] [place] [address]., [id number] Albumin Creatinine Ratio, Ur 7 1 - 29 mg/g [facility] Comment:Testing performed by : [facility], [address] [place] [address]., [id number] Urine 01/14/2024 12:3 0 PM CDT 01/14/2024 2:17 PM CDT Estefani Ervin MD LAB URINE ORDERABLES Final Re sult Performing Organization Address [facility] de Phone Number [facility] [address] [facility] [place] [address] * (ABNORMAL) POCT hemoglobin A1c (01/25/2022 11:24 AM CDT) Hgb A1C, POC 6.0(H) 4.0 - 5.6 % [facility] Est Average Gluc POC 126 mg/dL [facility] Comment: The ADA recommends reporting an estimated Average Glucose (eAG) with all Hemoglobin A1c results using the equation derived from a study of 507 normal and diabetic adults. ??Minority populations were underrepresented and children were not included. ?? (Diabetes Care 31:3812-3006, 2008). ??The eAG is not equivalent to a fasting glucose. Blood 01/25/2022 11:2 4 AM CDT 01/25/2022 11:24 AM CDT Griselda hSaw MD POINT OF CARE TEST OR DERABLES Final Result Performing Organization Address City/State/[facility] Phone Number [facility] [place] [address] from Last 3 Months or Most Recently Relevant to Health Maintenance Insurance [facility] H[facility]/PPO [place] [address] [facility] CHOICE PLUS [facility] HMO/PPO Address: [address] [place] [address] [facility] H[facility]/PPO Address: [address] [place] [address] [facility] H[facility]/PPO Address: [address] [place] [address] Care Teams Hydraulic Punch Press Operator Relationship Specialty Start Date End Date Griselda Shaw MD [address] [place] [address] PCP - General 08/31/18
--- OUTSIDE RECORDS SUMMARY | 2024-08-25 13:11 | XMS_ITS | Encounter Summary ---
Author Organization [facility] Address [address] [place] [address] Care Team Providers Care Asbestos Abatement Worker Name Role Phone Johanna Shaw MD Primary Care Provider Reason for Visit * Reason Comments Establish Care Hyperparathyroid. * Eval and Treat (Routine) - Closed Specialty Diagnoses / Procedures Referred By Job hicks Referred To Contact Surgical Oncology / General Surgery Diagnoses [place] [address] [place] [address] Phone: tel: [place]: [place] [address] [address] Phone: tel: fax: Referral ID Status Reason Start Date Expiration Date V isits Requested Visits Authorized [id number] Closed CRS to Schedule 08/10/2024 09/10/2025 1 1 Encounter Details Date Type Department Care Team (Latest Contact Info) Description 08/24/2024 1:30 PM LOGISTICS RESEARCH ENGINEER Video Visit [facility] Surgical Specialists [facility] [address] [facility] [address] [place] [address] [place] [address] [address] Hyperparathyroidism (Primary Dx) Social History Tobacco Use Types Packs/Day Years Used Date Smoking Tobacco: Never Assessed Comments Unknown Sex and Gender Information Value Date Recorded Sex Assigned at Not on file Legal Sex Female 4:48 PM LOGISTICS RESEARCH ENGINEER Gender Identity Not on file Sexual Orientation Not on file documented as of this encounter Last Filed Vital Signs Vital Sign Reading Time Taken Comments Blood Pressure - - Pulse 88 08/24/2024 1:21 PM LOGISTICS RESEARCH ENGINEER Temperature 37.5 ??C (99.5 ??F) 08/24/2024 1:21 PM CS T Respiratory Rate - - Oxygen Saturation 99% 08/24/2024 1:21 PM LOGISTICS RESEARCH ENGINEER Inhaled Oxygen Concentration - - Weight 64.4 kg (142 lb) 08/24/2024 1:21 PM LOGISTICS RESEARCH ENGINEER Height 165.1 cm (5' 5 ) 08/24/2024 1:21 PM LOGISTICS RESEARCH ENGINEER Body Mass Index 23.63 08/24/2024 1:21 PM LOGISTICS RESEARCH ENGINEER documented in this encounter Progress Notes * Jovan Servin MD - 08/24/2024 1:39 PM CST Images from the original note were not included. HISTORY OF PRESENT ILLNESS Sheba Jennings is a 64 y.o. female presents with chief complaint of Establish Care (Hyperparathyroid. ) Subjective This is a 64 year old female who presents for evaluation of hypercalcemia. For several years she has had issues with fatigue, dizziness, nausea, and bone pain that is worse with movement. She has had osteoporosis for several years and suffered a compression fracture of his spine late last year. She also notes a history of a kidney stone a few years back with no issues since. Her calcium on labs from 01/2024 was 10.2 and PTH was 65 concerning for hyperparathyroidism. FurtherCT and ultrasound imaging was notable for a left superior parathyroid adenoma for which she was referred to surgery. PMHx: osteoporosis, GERD PSHx: partial hysterectomy, sinus surgery, right arm surgery for tendon injury Meds: qulipta, rosuvastatin, metformin, omeprazole, zyrtec, escitalopram, multiple vitamins, Allergies: betadine, penicillin, sulfa antibiotics Social: Tobacco - smoked briefly 3x cig a day Alcohol - quit 32 years ago Drugs - denies REVIEW OF SYSTEMS Review of Systems Constitutional: Positive for fatigue. Negative for chills, fever and unexpected weight change. HENT: Negative for nosebleeds and sore throat. Eyes: Negative for eye problems and icterus. Respiratory: Negative for chest tightness, cough, hemoptysis and shortness of breath. Cardiovascular: Negative for chest pain, leg swelling and palpitations. Gastrointestinal: Positive for nausea. Negative for abdominal distention, abdominal pain, blood in stool and constipation. Genitourinary: Negative for bladder incontinence and frequency. Musculoskeletal: Positive for arthralgias and back pain. Skin: Negative for itching and rash. Neurological: Negative for dizziness, headaches and light-headedness. Psychiatric/Behavioral: Positive for depression. The patient is not nervous/anxious. Objective PHYSICAL EXAM Vitals: 08/24/24 1321 Pulse: 88 Temp: 99.5 ??F (37.5 ??C) SpO2: 99% No physical as this was a virtual visit IMAGING: CT SOFT TISSUE NECK W WO CONTRAST Result Date: 08/13/2024 CT NECK WITH AND WITHOUT CONTRAST HISTORY: Hyperparathyroidism TECHNIQUE: Precontrast and multiphase postcontrast images of the neck, Isovue 370 80 cc cc administered IV, coronal and sagittal recons FINDINGS: Lung apices are clear. Thyroid gland is normal size. A subtle 4 mm right upper pole thyroid nodule, referred to ultrasound report. As seen on the ultrasound, superior posterior to the left superior pole of thyroid gland there is an enhancing 1.2 cm mass on image 55 series 5 which displays washout. No additional parathyroid adenoma is seen. IMPRESSION: Left superior parathyroid adenoma DICTATION LOCATION: [address] US HEAD NECK TISSUES Result Date: 08/13/2024 EXAMINATION: US HEAD NECK TISSUES DATE: 08/13/2024 12:30 PM HISTORY: Hyperparathyroidism FINDINGS: Thyroid size and parenchymal echotexture are normal. A 0.5 cm circumscribed, hypoechoic right upper pole thyroid nodule is TI-RADS 4. A 0.5 cm cystic and solid left thyroid nodule is a TI-RADS 2 lesion. A well-circumscribed 1.2 x 0.4 x 0.6 cm nodule is observed deep to the upper pole of the left thyroid lobe. No other parathyroid nodules are observed. IMPRESSION: 1. Left superior parathyroid adenoma. 2. Small right TI-RADS 4 and small left TI-RADS 2thyroid nodules are below size threshold for follow-up. DICTATION LOCATION: Location [address] [place] [address] ASSESSMENT and PLAN: No diagnosis found. This is a 64 year old female who presents with biochemical and imaging findings consistent with a parathyroid adenoma. As such we recommend surgical removal. Discussed the operation in detail as wellas risks including injury to the recurrent laryngeal nerve. Additionally talked about post-operative management and expectations. Will work on scheduling the coming months for left parathyroidectomy. Alina Schneider MD General Surgery Resident, PGY-4 08/24/24 1:44 PM Attestation: I personally performed a history of the patient and discussed the management of the patient with myresident Dr. Schneider and reviewed their medical records myself including recent imaging as well as laboratory findings and agree with the history, physical exam, and plan of care including follow-up.I reviewed the resident's note and agree with the documented findings and plan of care. I spent a total of 60 minutes with the patient of which 50 minutes were spent in veterans rehabilitation counselor about the details of the condition, specifically the surgical management of Hyperparathyroidism=. Thank you for involving me in the care of this patient. Please don't hesitate to contact me if you have any questions or concerns. in kind regards, Jovan Servin MD, FACS, [facility] Surgical Oncology and Endocrine Surgery [facility] The author of this note, patient (or authorized franchise sales representative), and all other persons present consent to the audio recording of this visit for charting documentation purposes. This note was automatically generated by a Generative AI technology (Revinate), reviewed, edited, and finalized by Jovan Servin MD. Patient's identity confirmed: Yes. Patient gave verbal consent to have these services billed to their insurance and expressed understanding that co-insurance and deductible may apply: Yes. This encounter was completed via two-way synchronous: Audio and video communication. STICS RESEARCH ENGINEER STICS RESEARCH ENGINEER documented in this encounter Plan of Treatment Upcoming Encounters Date Type Department Care Team (Latest Contact Info) Description 10/08/2024 1:30 PM CDT Hospital Encounter [facility] Operating [address] [place] [address] [place] [address] [place] [address] 10/08/2024 1:30 PM CDT - 10/08/2024 4:00 PM CDT Surgery [facility] Operating Room [address] [place] [address] [place] [address] [place] [address] LEFT MINIMALLU INVASIVE PARATHYROIDECTOMY POSSIBLE BILATERAL NECK EXPLORATION INTRAOPERATIVE RECURRENT LARYNGEAL NERVE MONITORING INTRAOPERATIVE RECURRENT PARATHYROID HORMONE MONITORING Scheduled Procedures Name Priority Associated Diagnoses Date/Ti me PARATHYROIDECTOMY HYPERPARATHYROIDISM E21.3 10/08/2024 1:30 PM CDT documented as of this encounter Visit Diagnoses Diagnosis Hyperparathyroidism- Primary Hyperparathyroidism, unspecified documented in this encounter Care Teams Asbestos Abatement Worker Relationship Specialty Start Date End Date Johanna Shaw MD [address] [place] [address] [address] [place] [address] PCP - General Internal Medicine 08/13/24 documented as of this encounter
--- OUTSIDE RECORDS SUMMARY | 2024-08-25 13:11 | XMS_ITS | Encounter Summary ---
Author Organization [facility] Address [address] [place] [address] Care Team Providers Care Oil Tester Name Role Phone Johanna Shaw MD Primary Care Provider Encounter Details Date Type Department Care Team (Late st Contact Info) Description 08/24/2024 Orders Only [facility] Surgical Specialists [facility] [address] [facility] [address] [place] [address] Virgil Aleman Social History Tobacco Use Types Packs/Day Years Used Date Smoking Tobacco: Never Assessed Comments Unknown Sex and Gender Information Value Date Recorded Sex Assigned at Not on file Legal Sex Female 4:48 PM FEATHER STITCHER Gender Identity Not on file Sexual Orientation Not on file documented as of this encounter Plan of Treatment Upcoming Encounters Date Type Department Care Team (Latest Contact Info) Description 10/08/2024 1:30 PM CDT Hospital Encounter [facility] Operating Room [address] [place] [address] [place] [address] [address] 10/08/2024 1:30 PM CDT - 10/08/2024 4:00 PM CDT Surgery [facility] Operating Room [address] [place] [address] [place] [address] [address] LEFT MINIMALLU INVASIVE PARATHYROIDECTOMY POSSIBLE BILATERAL NECK EXPLORATION INTRAOPERATIVE RECURRENT LARYNGEAL NERVE MONITORING INTRAOPERATIVE RECURRENT PARATHYROID HORMONE MONITORING Scheduled Procedures Name Priority Associated Diagnoses Date/Ti me PARATHYROIDECTOMY HYPERPARATHYROIDISM E21.3 10/08/2024 1:30 PM CDT documented as of this encounter Visit Diagnoses Not on filedocumented in this encounter Care Teams Oil Tester Relationship Specialty Start Date End Date Johanna Shaw MD [address] [place] [place] [id number] PCP - General Internal Medicine 08/13/24 documented as of this encounter
--- OUTSIDE RECORDS SUMMARY | 2024-08-25 13:11 | XMS_ITS | Referral Summary ---
Author Organization [facility] Address [address] [place] [address] Care Team Providers Care Rest Room Maid Name Role Phone Johanna Shaw MD Primary Care Provider Source Comments [facility],non-owned Affiliates and Associated Physician Practices is amultiple site organization consisting of ambulatory clinics and hospital sitesin [place], [place], [place] and [place]. This disclosure is being madepursuant to the Care Everywhere program and may not contain all information available regarding this patient. Last updated 18.[facility] Allergies Active Allergy Reactions Criticality Noted Date [...] Orientation Not on file Plan of Treatment Not on file Care Teams Rest Room Maid Relationship Specialty Start Date End Date Johanna Shaw MD [address] [phone] [facility] - General 03/16/20
--- OUTSIDE RECORDS SUMMARY | 2024-08-25 13:11 | XMS_ITS | Clinical Summary ---
Author Organization [facility] [place] Address [address] [facility] CARMELO VEL[place]DEERSJOSE [address] Care Team Providers Care Singe Winder Name Role Phone Johanna Shaw MD Primary Care Provider Allergies Active Allergy Reactions Criticality Noted Date Comments Latex Rash Low 08/24/2024 Penicillins Hives High 08/24/2024 Povidone-Iodine Rash Low 08/24/2024 Sulfa (Sulfonamide Antibiotics) Hives High 10/2024 Medications atogepant (QULIPTA) 30 mg Tablet Take 30 mg by mouth daily. Active rosuvastatin calcium (ROSUVASTATIN ORAL) Take by mouth. Active glyburide/metfor min HCl (GLYBURIDE-METFO RMIN ORAL) Take by mouth. Active VITAMIN E ORAL Take by mouth. Active ERGOCALCIFEROL, VITAMIN D2, ORAL Take by mouth. Active OMEPRAZOLE MAGNESIUM ORAL Take by mouth. Active cetirizine (ZyrTEC) 5 mg tablet Take 5 mg by mouth daily. Active escitalopram oxalate (LEXAPRO) 10 mg tablet Take 10 mg by mouth daily. Active CYANOCOBALAMIN, VITAMIN B-12, ORAL Take by mouth. Active dexAMETHasone (DECADRON) 1 mg Tablet Take 1 mg by mouth daily at bedtime. Active Active Problems No known active problems Encounters Date Type Department Care Team Description 08/24/2024 1:30 PM MANAGER DEVELOPMENT Video Visit [facility] [address] [place] [phone] Jovan Servin MD Hyperparathyroidism (Primary Dx) 08/24/2024 Orders Only [facility] [address] [facility] [address] [place] [address] Primitivo Aponte Virgil Fullernanda 08/17/2024 External Device Data [facility] ABSTRACTION Provider, Abstract 08/17/2024 External Device Data [facility] ABSTRACTION Provider, Abstract 08/17/2024 External Device Data [facility] ABSTRACTION Provider, Abstract 08/13/2024 12:05 PM MANAGER DEVELOPMENT - 08/13/2024 11:59 PM MANAGER DEVELOPMENT Hospital Encounter [facility] [address] [place] [address] Jovan Servin MD Discharge Disposition: Home or Self Care 08/13/2024 12:05 PM MANAGER DEVELOPMENT - 08/13/2024 11:59 PM MANAGER DEVELOPMENT Hospital Encounter [facility] [address] [place] [address] Jovan Servin MD Discharge Disposition: Home or Self Care 08/13/2024 Telephone [facility] [address] [facility] [address] [place] [address] Jovan Servin MD Referral Request 08/12/2024 Telephone [facility] [address] [facility] [address] [place] [address] Tootie So us/ct reminder 08/12/2024 Telephone [facility] [address] [facility] [address] [place] [address] Tootie So US/CT reminder 07/28/2024 Orders Only [facility] [address] [facility] [address] [place] [address] Jovan Servin MD Hyperparathyroidism (Primary Dx) 07/28/2024 Chart Note [facility] [address] [facility] [address] [place] [address] Ladonna Abdullahi RN from Last 3 Months Social History Tobacco Use Types Packs/Day Years Used Date Smoking Tobacco: Never Assessed Comments Unknown Sex and Gender Information Value Date Recorded Sex Assigned at Not on file Legal Sex Female 4:48 PM MANAGER DEVELOPMENT Gender Identity Not on file Sexual Orientation Not on file Last Filed Vital Signs Vital Sign Reading Time Taken Comments Blood Pressure - - Pulse 88 08/24/2024 1:21 PM MANAGER DEVELOPMENT Temperature 37.5 ??C (99.5 ??F) 08/24/2024 1:21 PM CS T Respiratory Rate - - Oxygen Saturation 99% 08/24/2024 1:21 PM MANAGER DEVELOPMENT Inhaled Oxygen Concentration - - Weight 64.4 kg (142 lb) 08/24/2024 1:21 PM MANAGER DEVELOPMENT Height 165.1 cm (5' 5 ) 08/24/2024 1:21 PM MANAGER DEVELOPMENT Body Mass Index 23.63 08/24/2024 1:21 PM MANAGER DEVELOPMENT Plan of Treatment Upcoming Encounters Date Type Department Care Team (Latest Contact Info) Description 10/08/2024 1:30 PM CDT Hospital Encounter [facility] Operating [address] [place] [address] [place] [address] [address] [address] 10/08/2024 1:30 PM CDT - 10/08/2024 4:00 PM CDT Surgery [facility] Operating Room [address] [place] [address] [place] [address] [address] [facility] [address] [place] [address] LEFT MINIMALLU INVASIVE PARATHYROIDECTOMY POSSIBLE BILATERAL NECK EXPLORATION INTRAOPERATIVE RECURRENT LARYNGEAL NERVE MONITORING INTRAOPERATIVE RECURRENT PARATHYROID HORMONE MONITORING Scheduled Procedures Name Priority Associated Diagnoses Date/Ti me PARATHYROIDECTOMY HYPERPARATHYROIDISM E21.3 10/08/2024 1:30 PM CDT Health Maintenance Due Date Last Done Comments DIABETES ANNUAL FOOT EXAM 01/17/1980 DIABETES ANNUAL RETINAL EXAM 01/17/1980 DIABETES MICROALBUMIN ANNUAL SCREEN 01/17/1980 LDL CHOLESTEROL ANNUAL 01/17/1980 DTAP/TDAP/TD VACCINES (1 - Tdap) 1981 BREAST CANCER SCREENING 2002 COLORECTAL SCREENING 2007 Colorectal Cancer Screening 2007 FIT-DNA Q 3 years 2007 FIT/FOBT Q 1 year 2007 Flex Sig/CT Colonography Q 5 years 2007 ZOSTER VACCINE (1 of 2) 01/17/2012 CERVICAL CANCER SCREENING 06/05/2020 06/05/2017 RSV VACCINE (60+ or ) (1 - Risk 60-74 years 1-dose series) 2022 DIABETES HBA1C Q 6 MONTHS 07/28/2022 01/25/2022 Preventative Visit- Commercial 07/21/2024 10/10/2022 INFLUENZA VACCINE Completed 05/13/2024, , 04/24/2020, Additional history exists Procedures Procedure Name Priority Date/Time Associated Diagnosis Comments CT SOFT TISSUE NECK W WO CONTRAST Routine 08/13/2024 12:48 PM MANAGER DEVELOPMENT Hyperparathyroidism POC CREATININE Routine 08/13/2024 12:35 PM MANAGER DEVELOPMENT US HEAD NECK TISSUES Routine 08/13/2024 12:30 PM MANAGER DEVELOPMENT Hyperparathyroidism from Last 3 Months Results * CT SOFT TISSUE NECK W WO CONTRAST (08/13/2024 12:48 PM MANAGER DEVELOPMENT) Anatomical Region Laterality Modality Neck Computed Tomogra phy 08/13/2024 12:3 4 PM MANAGER DEVELOPMENT Impressions 08/13/2024 2:39 PM MANAGER DEVELOPMENT IMPRESSION: Left superior parathyroid adenoma ?? DICTATION LOCATION: Location [address] [place] [address] Narrative 08/13/2024 2:[address] NECK WITH AND WITHOUT CONTRAST HISTORY: [...] washout. No additional parathyroid adenoma is seen. Procedure Note Ac Ryan MD - 08/13/2024 CT NECK WITH AND WITHOUT CONTRAST [...] IMPRESSION: Left superior parathyroid adenoma DICTATION LOCATION: [address] Jovan Servin MD CT ORDERABLES Final Re sult * POC CREATININE (08/13/2024 12:35 PM MANAGER DEVELOPMENT) CREATININE POC 0.70 0.60 - 1.30 mg/dL 08/13/2024 12:35 PM MANAGER DEVELOPMENT [facility] GFR POC >60 >=60 mL/min/1.7 3 sq meter 08/13/2024 12:35 PM MANAGER DEVELOPMENT [facility] Comment:eGFR calculated with 2020 CKD-EPI equation. Vegetarian diet, extremely high or low muscle mass, and may affect results. Cystatin C with Glomerular Filtration Rate is a suitable alternative for these patients. Blood, whole 08/13/2024 12:3 5 PM MANAGER DEVELOPMENT 08/13/2024 12:39 PM MANAGER DEVELOPMENT Jovan Servin MD POINT OF CARE TESTING Fi nal Result [facility] - [facility] CLIA#[id number] [address] [place] [address] * US HEAD NECK TISSUES (08/13/2024 12:30 PM MANAGER DEVELOPMENT) Anatomical Region Laterality Modality Head Ultrasound 08/13/2024 12:3 2 PM MANAGER DEVELOPMENT Impressions 08/13/2024 2:23 PM MANAGER DEVELOPMENT IMPRESSION: 1. Left superior parathyroid adenoma. 2. Small right TI-RADS 4 and small left TI-RADS 2 thyroid nodules are below size threshold for follow-up. DICTATION LOCATION: Location [address] [place] [address] Narrative 08/13/2024 2:23 PM MANAGER DEVELOPMENT EXAMINATION: US HEAD NECK TISSUES DATE: 08/13/2024 12:30 PM HISTORY: ??Hyperparathyroidism FINDINGS: ??Thyroid size and parenchymal echotexture are normal. A 0.5 cm circumscribed, hypoechoic right upper pole thyroid nodule is TI-RADS 4. A 0.5 cm cystic and solid left thyroid nodule is a TI-RADS 2 lesion. A well-circumscribed 1.2 x 0.4 x 0.6 cm nodule is observed deep to the upper pole of the left thyroid lobe. No other parathyroid nodules are observed. Procedure Note Adolfo Donis MD - 08/13/2024 EXAMINATION: US HEAD NECK TISSUES DATE: [...] right TI-RADS 4 and small left TI-RADS 2 thyroid nodules are below size threshold for follow-up. DICTATION LOCATION: Location [address] [place] [address] Jovan Servin MD ORDERABLES Final Re sult from Last 3 Months Insurance [employer] [facility] [id number] Care Teams Singe Winder Relationship Specialty Start Date End Date Johanna Shaw MD [address] [place] [address] [place] [phone] PCP - General Internal Medicine 08/13/24
--- OUTSIDE RECORDS SUMMARY | 2024-08-25 13:12 | XMS_ITS | Patient Health Summary ---
Author Organization [facility] Address [address] [place] [address] Care Team Providers Care Center Lead Consultant Name Role Phone Johanna Shaw MD Primary Care Provider Note from [facility],non-owned Affiliates and Associated Physician Practices is amultiple site organization consisting of ambulatory clinics and hospital sitesin [place], [place], [place] and [place]. This disclosure is being madepursuant to the Care Everywhere program and may not contain all information available regarding this patient. Last updated 18.[facility] Allergies * Amoxicillin(Unknown) * Erythromycin(Unknown) * Latex(Unknown) * Povidone Iodine(Unknown) * Sulfa Drugs(Unknown) Medications * Be aware that medications may not be up to date on this document. Alwaysverify current medications with the patient. * escitalopram (LEXAPRO) 10 MG tablet(Started 05/27/2020) PLEASE SEE ATTACHED FOR DETAILED DIRECTIONS * fenofibrate (TRICOR) 145 MG tablet(Started 01/24/2020) every 24 hours * EPINEPHrine (EPIPEN) 0.3 MG/0.3ML auto-injector pen epinephrine 0.3 mg/0.3 mL injection, auto-injector * cetirizine (ZYRTEC) 10 MG tablet Take 10 mg by mouth once daily * albuterol HFA (PROVENTIL;VENTOLIN;PROAIR) 108 (90 Base) MCG/ACT inhaler albuterol sulfate HFA 90 mcg/actuation aerosol inhaler INHALE 2 PUFF(S) EVERY 4 HOURS BY INHALATION ROUTE NEEDED * denosumab (PROLIA) 60 MG/ML SC injection Inject 60 mg subcutaneously once * metFORMIN (GLUCOPHAGE) 500 MG tablet Take 500 mg by mouth 2 times daily with morning and evening meal * budesonide-formoterol (SYMBICORT) 80-4.5 MCG/ACT inhaler(Started 05/29/2021) Inhale 2 (two) puffs by mouth 2 times daily 3 refills by 05/29/2022 Active Problems Problem Noted Date Diagnosed Date Non-seasonal allergic rhinitis 06/28/2020 Irritant contact dermatitis 06/28/2020 Adverse food reaction 06/28/2020 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 (FLUZONE; FLULAVAL; FLUARIX; AFLURIA QUADRIVALENT; 6MO+), 0.5 ML (IIV4)(Given 04/24/2020, 06/22/2015) Social History Tobacco Use Types Packs/Day Years Used Date Smoking Tobacco: Never Assessed PHQ-2 Answer Date Recorded PHQ2 TOTAL SCORE 0 01/11/2021 Sex and Gender Information Value Date Recorded Sex Assigned at Not on file Gender Identity Not on file Sexual Orientation Not on file Procedures * ALLERGEN CUCUMBER IGE(Performed 12/11/2020) * ALLERGEN INTERPRETATION(Performed 12/11/2020) * ALLERGEN MELO FRUIT IGE(Performed 12/11/2020) * ALLERGEN LATEX IGE(Performed 12/11/2020) * ALLERGEN RESPIRATORY PNL REGION 8 ([place])(Performed 12/11/2020) Results * ALLERGEN MELO FRUIT IGE (12/11/2020 3:24 PM CDT) Allergen [place] Fruit ( f91) IgE <0.10 kU/L [facility] Class 0 [facility] Comment: Test Performed at: [facility] [place] [address] [place], [place] ??[phone] NAZARIO BEE DO,MPH 12/11/2020 3:24 PM CDT 12/11/2020 3:24 PM CDT Tyron Joe MD LAB - CHEMISTRY PARMINDER ANG [facility] [address] [place] [address] * ALLERGEN CUCUMBER IGE (12/11/2020 3:24 PM CDT) Allergen [place] IgE <0.10 kU/L [facility] Class 0 [facility] Comment: INTERPRETATION ??SPECIFIC ?LEVEL OF ALLERGEN ?? IGE CLASS ? kU/L ?SPECIFIC IGE ANTIBODY ??-------- ?? --------- ? 0 ? <0.10 ? ABSENT/UNDETECTABLE ? 0/1 ? 0.10-0.34 ? VERY LOW LEVEL ? 1 ? 0.35-0.69 ? LOW LEVEL ? 2 ? 0.70-3.49 ? MODERATE LEVEL ? 3 ? 3.50-17.4 ? HIGH LEVEL ? 4 ? 17.5-49.9 ? VERY HIGH LEVEL ? 5 ? 50-100 ?VERY HIGH LEVEL ? 6 ? >100 ?VERY HIGH LEVEL The clinical relevance of allergen results of 0.10-0.34 kU/L are undetermined and intended for specialist use. Test Performed at: [facility] [address] [place], [place] ??[phone] MATTHEW VARELA MD,PHD,JANEEN 12/11/2020 3:24 PM CDT 12/11/2020 3:24 PM CDT Tyron Joe MD LAB - SEROLOGY ORDER KATR[facility] [address] [place] [address] * ALLERGEN INTERPRETATION (12/11/2020 3:24 PM CDT) Interpretation See Below [facility] Comment: Specific ?Level of Allergen IGE Class ?kU/L ? Specific IGE Antibody ----- ? --------- ?0 ?<0.10 ? Absent/Undetectable ??0/1 ?0.10-0.34 ? Very Low Level ??1 ?0.35-0.69 ? Low Level ??2 ?0.70-3.49 ? Moderate Level ??3 ?3.50-17.4 ? High Level ??4 ?17.5-49.9 ? Very High Level ??5 ?50-100 ?Very High Level ??6 ?>100 ?Very High Level The clinical relevance of allergen results of 0.10-0.34 kU/L are undetermined and intended for specialist use. Allergens denoted with a include results using one or more analyte specific reagents. In those cases, the test was developed and its analytical performance characteristics have been determined by [employer]. It has not been cleared or approved by the U.S. Food and Drug Administration. This assay has been validated pursuant to the CLIA regulations and is used for clinical purposes. Test Performed at: [facility] [address] [place] ??[phone] NAZARIO BEE DO,MPH 12/11/2020 3:24 PM CDT 12/11/2020 3:24 PM CDT Tyron Joe MD LAB - SEROLOGY ORDER KATRIN Performing Organization Address [facility] de Phone Number [facility] [id number] [place] [phone] * ALLERGEN LATEX IGE (12/11/2020 3:24 PM CDT) Allergen Latex <0.10 kU/L [facility] Class 0 [facility] Comment: Negative findings for latex specific IgE antibodies does not preclude latex allergy. Positive findings for latex specific IgE antibodies is highly suggestive of latex allergy and should be considered in context of clinical findings. Test Performed at: [facility] [address] [place], [place] ??[phone] NAZARIO BEE DO,MPH 12/11/2020 3:24 PM CDT 12/11/2020 3:24 PM CDT Tyron Joe MD LAB - CHEMISTRY ORDMisael ANG Performing Organization Address [facility] de Phone Number [facility] [address] [place] [address] * (ABNORMAL) ALLERGEN RESPIRATORY PROF ([place]) IGE (12/11/2020 3:24 PM CDT) Allergen Dermatophagoides pteronyssinus <0.10 kU/L [facility] Class 0 [facility] Allergen Dermatophagoides farinae <0.10 kU/L [facility] Class 0 [facility] Allergen P. notatum <0.10 kU/L [facility] Class 0 [facility] Allergen C Herbarum <0.10 kU/L [facility] Class 0 [facility] Allergen Aspergillus fumigatus <0.10 kU/L [facility] Class 0 [facility] Allergen Alternaria alternata <0.10 kU/L [facility] Class 0 [facility] Allergen Cat Dander 0.54(H) kU/L [facility] Class 1 [facility] Allergen Dog Dander <0.10 kU/L [facility] Class 0 [facility] Allergen Cockroach Hong Konger <0.10 kU/L [facility] Class 0 [facility] Allergen Maple <0.10 kU/L [facility] Class 0 [facility] Allergen Mountain Washoe <0.10 kU/L [facility] Class 0 [facility] Allergen [place] Tree <0.10 kU/L [facility] Class 0 [facility] Allergen [place] <0.10 kU/L [facility] Class 0 [facility] Allergen Maybell Tree <0.10 kU/L [facility] Class 0 [facility] Allergen White Neil <0.10 kU/L [facility] Class 0 [facility] Allergen [place] <0.10 kU/L [facility] Class 0 [facility] Allergen Elm <0.10 kU/L [facility] Class 0 [facility] Allergen Dell/Pecan Tree <0.10 kU/L [facility] Class 0 [facility] Allergen White [place] <0.10 kU/L [facility] Class 0 [facility] Allergen Berm[place] Grass <0.10 kU/L [facility] Class 0 [facility] Allergen [place] Grass <0.10 kU/L [facility] Class 0 [facility] Allergen Common Ragweed <0.10 kU/L [facility] Class 0 [facility] Allergen Rough Pigweed <0.10 kU/L [facility] Class 0 [facility] Allergen Greenlandic Thistle <0.10 kU/L [facility] Class 0 [facility] Allergen Rough Martinez Elder <0.10 kU/L [facility] Class 0 [facility] Allergen Mouse Urine Protein <0.10 kU/L [facility] Class 0 [facility] IgE 30 <II=383 kU/L [facility] Comment: Test Performed at: [facility] [address] ??[phone] NAZARIO BEE DO,MPH 12/11/2020 3:24 PM CDT 12/11/2020 3:24 PM CDT Tyron Joe MD LAB - CHEMISTRY PARMINDER ANG [facility] Organization Address City/State/ZIP Co de Phone Number [facility] [address] [place] [address] Care Teams Center Lead Consultant Relationship Specialty Start Date End Date Johanna Shaw MD [address] [phone] PCP - General 03/16/20
--- OUTSIDE RECORDS SUMMARY | 2024-08-25 13:12 | XMS_ITS | Encounter Summary ---
Author Organization [facility] Address [facility] [facility] [place] [address] Care Team Providers Care Family Service Caseworker Name Role Phone Johanna Shaw MD Primary Care Provider Encounter Details Date Type Department Care Team (Late st Contact Info) Description 12/19/2020 Telephone [facility] [address] [place], [place] [id number] Tyron Joe MD [facility] OF [place]GY[place] [address] Social History Tobacco Use Types Packs/Day Years Used Date Smoking Tobacco: Never Assessed Sex and Gender Information Value Date Recorded Sex Assigned at Not on file Gender Identity Not on file Sexual Orientation Not on file documented as of this encounter Patient Instructions * Patient Instructions* Laurita Rodriguez - 12/19/2020 1:04 PM CDT Patient called and said said she will come back in the office for breathing test and more tests. However there are no in patient appt. I scheduled a vide appt. For her in December. Please advise me if you need me to call her into the office. Holley documented in this encounter Plan of Treatment Not on file documented as of this encounter Visit Diagnoses Not on filedocumented in this encounter Care Teams Family Service Caseworker Relationship Specialty Start Date End Date Johanna Shaw MD [address] [phone] PCP - General 03/16/20 documented as of this encounter
--- OUTSIDE RECORDS SUMMARY | 2024-08-25 13:12 | XMS_ITS | Referral Summary ---
Author Organization [facility] Address [address] [facility] [place] [address] Care Team Providers Care Operations Leader Name Role Phone Griselda Shaw MD Primary Care Provide r Encounters Date Type Department Care Team Description 07/09/2024 Orders Only [facility] [address] [place] [address] Antonia Stokes RN 07/09/2024 4:41 PM DISABILITY REPRESENTATIVE - 07/09/2024 11:59 PM DISABILITY REPRESENTATIVE Hospital Encounter [facility] [address] [place] [address] Hyperparathyroidism , unspecified (HCC) Discharge Disposition: Discharge to home or self care 07/01/2024 Orders Only [facility] Information Management [address] [place] [address] Scanning, Provider 06/30/2024 Telephone [facility] [address] [facility] [address] [place] [address] Estefani Ervin MD from Last 3 Months Allergies Active Allergy Reactions Criticality Noted Date [...] USE TO TEST BLOOD GLUCOSE ONCE DAILY 05/30/20 24 Active dexAMETHasone (DECADRON) 4 mg tablet [...] Abnormal mammogram 04/11/2010 Mass of breast 04/09/2010 Social History Tobacco Use Types Packs/Day Years [...] on file Legal Sex Female 3:01 AM DISABILITY REPRESENTATIVE Gender Identity Not on file Sexual Orientation [...] 01/07/2024 2:56 PM CDT Plan of Treatment Not on file Procedures Procedure Name Priority Date/Time Associated Diagnosis Comments CT ABDOMEN W WO CONTRAST Schedule Routine, Read Routine (OP Routine) 07/09/2024 5:25 PM DISABILITY REPRESENTATIVE Hyperparathyroidis m, unspecified (HCC) POCT CREATININE - DEVICE Routine 07/09/2024 4:52 PM DISABILITY REPRESENTATIVE SCAN - OTHER ORDERS 07/01/2024 11:31 AM DISABILITY REPRESENTATIVE EGFR Routine 02/04/2024 12:32 PM CDT Hypercalcemia ALBUMIN CREATININE RATIO, URINE Routine 01/14/2024 12:30 PM CDT Type 2 diabetes mellitus with other specified complication, without long-term current use of insulin (HCC) POCT HEMOGLOBIN A1C Routine 01/25/2022 11:24 AM CDT from Last 3 Months or Most Recently Relevant to Health Maintenance Results * CT Abdomen W WO Contrast (07/09/2024 5:25 PM DISABILITY REPRESENTATIVE) Anatomical Region Laterality Modality Body N/A Computed Tomogra phy 07/11/2024 1:56 PM DISABILITY REPRESENTATIVE Impressions 07/11/2024 1:56 PM DISABILITY REPRESENTATIVE 1. ??No adrenal lesions. Electronically signed by: Dariel Quintanilla M.D. Narrative 07/11/2024 1:56 PM DISABILITY REPRESENTATIVE Examination: Computed tomography of the abdomen with [...] esult * POCT creatinine (07/09/2024 4:52 PM DISABILITY REPRESENTATIVE) Creatinine POC 0.7 0.6 - 1.1 mg/dL Blood 07/09/2024 4:52 PM DISABILITY REPRESENTATIVE 07/09/2024 4:52 PM DISABILITY REPRESENTATIVE Verenice Givens MD LAB POCT ORDERABLES - DEV ICE Final Result Performing Organization Address City/State/ZIP Co pa Phone Number [facility] Department [place] [address] * SCAN - OTHER ORDERS (07/01/2024 11:31 AM DISABILITY REPRESENTATIVE) Provider Scanning Final Result * eGFR (02/04/2024 [...] of Race in Diagnosing Kidney Disease, JASN 2020). The CKD-EPI equation should not be used for patients with unstable renal function and has not been validated in children and those over 70. Current interpretive data was last reviewed 2021. Blood 02/04/2024 12:3 2 PM CDT 02/04/2024 12:56 PM CDT Estefani Ervin MD LAB BLOOD ORDERABLES Final Re sult [facility] [address] [address] Department [place] [address] * Albumin Creatinine Ratio, Urine (01/14/2024 12:30 PM CDT) Albumin Ur 13.0 mg/L Comment: Interpretive Data No reference range established. Current interpretive data was last revised 2018. Testing performed by: [facility], [address] [place] [address]., [address] Creatinine Ur 191.7 mg/dL [facility] Comment: Interpretive Data No reference range established. Current interpretive data was last revised 2018. Testing performed by: [facility], [address] [place] [address]., [address] Albumin Creatinine Ratio, Ur 7 1 - 29 mg/g [facility] Comment:Testing performed by : [facility], [address] [place] [address]., [address] Urine 01/14/2024 12:3 0 PM CDT 01/14/2024 2:17 PM CDT Estefani Ervin MD LAB URINE ORDERABLES Final Re sult [facility] [address] [facility]. Department [place] [address] * (ABNORMAL) POCT hemoglobin A1c (01/25/2022 11:24 AM CDT) Hgb A1C, POC 6.0(H) 4.0 - 5.6 % [facility] Est Average Gluc POC 126 mg/dL [facility] Comment: The ADA recommends reporting an estimated Average Glucose (eAG) with all Hemoglobin A1c results using the equation derived from a study of 507 normal and diabetic adults. ??Minority populations were underrepresented and children were not included. ?? (Diabetes Care 31:5856-0275, 2008). ??The eAG is not equivalent to a fasting glucose. Blood 01/25/2022 11:2 4 AM CDT 01/25/2022 11:24 AM CDT Griselda Shaw MD POINT OF CARE TEST OR DERABLES Final Result Performing Organization Address [facility] Co de Phone Number [facility] Department [place] [address] from Last 3 Months or Most Recently Relevant to Health Maintenance Insurance [facility] CHOICE PLUS CHOICE PLUS CHOICE PLUS CHOICE PLUS Member Subscriber Plan / Payer (Ef fective 2018-Present) Name:Sheba Medina Relation to Subscriber:Self Name:Sheba Medina Payer ID:[id number] (NA) Type:[facility] HMO/PPO Address: [place] [phone] Care Teams Operations Leader Relationship Specialty Start Date End Date Griselda Shaw MD [address] [place] [address] PCP - General 08/31/18
--- OUTSIDE RECORDS SUMMARY | 2024-08-25 13:12 | XMS_ITS | Encounter Summary ---
Author Organization [facility] Address [address] [facility] [place] [address] Phone Care Team Providers Care Vp Emerging Media Name Role Phone Johanna Shaw MD Primary Care Provider Corinne Branch APRN, ACADEMIC PROGRAM SPECIALIST Unavailable [phone] Reason for Visit * Reason Comments Medication Refill Encounter Details Date Type Department Care Team (Late st Contact Info) Description 04/15/2023 Refill [facility] - [place] [address] [place] [address] Corinne Branch, ROBLES, ACADEMIC PROGRAM SPECIALIST [address] [place] [address] Medication Refill Social History Tobacco Use Types Packs/Day Years Used Date Smoking Tobacco: Never Smokeless Tobacco: Never Alcohol Use Standard Drinks/Week Comments Not Currently 0 (1 standard drink = 0.6 oz pur e alcohol) Comments Unknown Sex and Gender Information Value Date Recorded Sex Assigned at Not on file Legal Sex Female 9:01 AM CDT Gender Identity Not on file Sexual Orientation Not on file documented as of this encounter Miscellaneous Notes * Telephone Encounter - Amy Carvalho RN - 04/15/2023 8:33 AM CDT Medication failed the protocol, provider to review and approve the medication order if appropriate. Requested Prescriptions Pending Prescriptions Disp Refills Qulipta 30 MG Tablet [Pharmacy Med Name: QULIPTA 30 MG TABLET] 30 Tablet 2 Sig: TAKE 1 TABLET BY MOUTH EVERY DAY Not Delegated - Off Protocol Failed - 04/15/2023 1:01 AM Failed - This refill cannot be delegated Passed - Visit with relevant provider in past 12 months or upcoming 90 days Recent Visits Date Type Provider Dept 01/01/23 Office Visit Corinne Branch APRN, [facility] [place] [facility] Showing recent visits within past 365 days and meeting all other requirements Future Appointments Date Type Provider Dept 07/01/23 Appointment Corinne Branch APRN, [facility] [place] Showing future appointments within next 90 days and meeting all other requirements documented in this encounter Plan of Treatment Not on file documented as of this encounter Visit Diagnoses Diagnosis Episodic migraine documented in this encounter Care Teams Vp Emerging Media Relationship Specialty Start Date End Date Johanna Shaw MD [address] [place] [address] PCP - General Internal Medicine 02/20/22 Corinne Branch APRN, ACADEMIC PROGRAM SPECIALIST [address] [place] [address] Nurse Practitioner Advanced Practice Nurse 03/22/22 documented as of this encounter
--- OUTSIDE RECORDS SUMMARY | 2024-08-25 13:12 | XMS_ITS | CONTINUITY OF CARE DOCUMENT ---
Author Name froilan, froilan Address Unknown Organization [facility] Address [address] [facility] [address] [place] [address] Phone [phone] Care Team Providers Care Trash Hauler Name Role Phone Calin Gonzales MD Unavailable [phone] MAREK MCWILLIAMS MD Unavailable [phone] MAREK MCWILLIAMS MD Unavailable [phone] PROBLEMS Condition Status Date Provider Notes Cardiology examination active Calin Gonzales MD Hyperlipidemia active Calin Gonzales MD Chest discomfort active Calin Gonzales MD Family History of Hypertension: active Nick Gonzales MD Family History of CVA or Stroke: active Jesse Gonzales MD Family History of CVA or Stroke: active Jesse Gonzales MD ENCOUNTERS Date Type Provider Location Encounter Diag nosis - In-person encounter Office Visit Calin Gonzales MD [facility] Cardiology examinationFamily History of CVA or Stroke:Family History of CVA or Stroke:Family History of Hypertension:Chest discomfortHyperlipidemia VITAL SIGNS Date Observation Value Provider weight E&M 147 [lb_av] Candelaria delvalle Body Mass Index (Ratio) 24.46 kg/m2 Nick Gonzales MD blood pressure, cuff size regular Cy clemencia Mercado blood pressure, diastolic 70 mm[Hg] Caleb Mercado blood pressure, systolic 116 mm[Hg] Lynne Mercado pulse rate 73 /min Candelaria delvalle respiratory rate E&M 16 /min Candelaria Mercado oxygen saturation, oximetry 98 % Candelaria Mercado height E&M 65 [in_i] Candelaria delvalle weight E&M 147 [lb_av] Candelaria delvalle ALLERGIES Allergy Name Onset Date Reaction Criticality Status IODINE Low Criticality active SULFADIAZINE Low Criticality active MELO FLAVOR Low Criticality active LATEX GLOVES Low Criticality active AMOXICILLIN Low Criticality active PENICILLIN G PROCAINE Low Criticalit y active HISTORY OF MEDICATION USE Medication Status Instructions Dates Provider Indications Com ments B COMPLEX ORAL TABLET active take 1 tab daily Candelaria Mercado CRESTOR 20 MG ORAL TABLET active take 1 tab daily Candelaria Mercado CITALOPRAM HYDROBROMIDE 10 MG ORAL TABLET active take 1 tab dialy Candelaria Mercado TYMLOS SOLUTION PEN-INJECTOR active inject 80 mcg once a day Candelaria Mercado ZYRTEC ALLERGY 10 MG ORAL TABLET active take 1 tab daily Candelaria Mercado OMEGA-3-6-9 ORAL CAPSULE active take 1 cap twice a day Candelaria Mercado CALCIUM CITRATE CHEWY BITE TABLET CHEWABLE active TAke 1 tab twice daily Candelaria Mercado VITAMIN E 400 UNIT ORAL TABLET active take 1 tab daily Candelaria Mercado VITAMIN D3 2000 UNIT ORAL TABLET active take 1 tab daily Candelaria Mercado OMEPRAZOLE 20 MG ORAL CAPSULE DELAYED RELEASE active take 1 tab daily Candelaria Mercado SOCIAL HISTORY Date Observation Value Provider alcohol use no Cailn Gonzales MD social history E&M S moking History: P tonya is a former smoker. Calin Gonzales MD social history reviewed E&M revi ewed - no changes required Calin Gonzales MD smoking history, tot al pack/day 1/2 PPD Candelaria Mercado cigarette use yes Candelaria Ward smoking status Former smoker Candelaria sr FAMILY HISTORY Family Member Condition Full Brother Family History of Hy pertension: Father Family History of CV A or Stroke: Mother Family History of CV A or Stroke: INSURANCE PROVIDERS Payer name Policy type / Coverage type Jake red democrat ID [facility] [id number] Other [id number] ADVANCE DIRECTIVES Name Date DISCUSSED - NO DECISION MADE TREATMENT PLAN Date Name Performer Cardiology [facility] [place] nt :Will check an echo and a routine stress test. Calin Gonzales MD Cardiology [employer] [place] nt :On statin. Will check coronary calcium score. Calin Gonzales MD Date Name CT, Coronary Calcium Score Stress Routine Complete Echo HISTORY OF PROCEDURES Procedure Date Procedure Name Provider Procedure Notes S tatus CT- Coronary CA score Calin Gonzales MD completed EKG Calin Gonzales MD completed
--- OUTSIDE RECORDS SUMMARY | 2024-08-25 13:12 | XMS_ITS | Clinical Summary ---
Author Organization [facility] Address [address] [place] [address] Phone Care Team Providers Care Mercury Washer Name Role Phone Johanna Shaw MD Primary Care Provider Corinne Branch APRN, SUPERVISOR DOPING Unavailable [phone] Allergies Active Allergy Reactions Criticality Noted Date Comments Amoxicillin Unknown 02/28/2022 Povidone Iodine Unknown 02/28/2022 Covid-19 Mrna Vacc (Moderna) Unknown 022 Erythromycin Unknown 02/28/2022 Latex Unknown 02/28/2022 Sulfa Antibiotics Unknown 02/28/2022 Medications albuterol 108 (90 Base) MCG/ACT Aerosol Solution take 2 Puffs by inhalation every 4 hours as needed. Active ALPRAZolam (XANAX) 0.25 MG Tablet Take 0.25 mg by mouth 3 times daily as needed. Active EPINEPHRINE HCL, ANAPHYLAXIS, IM by Intramuscular route. Active escitalopram (LEXAPRO) 10 MG Tablet Take 10 mg by mouth daily. Active FLUTICASONE PROPIONATE EX by Apply externally route. Active metFORMIN (GLUCOPHAGE) 500 MG Tablet Take 500 mg by mouth 2 times daily (with meals). Active Omeprazole 20 MG Tablet Delayed Response Take by mouth. Activ e rosuvastatin (CRESTOR) 40 MG Tablet Take 40 mg by mouth daily. Active B-12 (CYANOCOBALAMI N) 250 MCG Tablet Take 500 mcg by mouth Every other day. Active Ferrous Sulfate (IRON PO) Take by mouth. Activ e CRANBERRY PO Take by mouth. Ac tive Ubrogepant (Ubrelvy) 50 MG Tablet Take 1 Tablet by mouth once as needed for Other (headache/migrain e). Active Atogepant (Qulipta) 30 MG TabletIndicati ons:Episodic migraine Take 1 Tablet by mouth daily. 30 Tablet 5 08/09/19 25 Active Atogepant (Qulipta) 30 MG TabletIndicati ons:Episodic migraine Take 1 Tablet by mouth daily. 30 Tablet 2 05/06/20 24 025 Discontin ued(Reord er) Active Problems No known active problems Encounters Date Type Department Care Team Description 08/09/2024 Refill [facility] [address] [place] [address] Corinne Branch, STUDENT ACTIVITIES DIRECTOR, SUPERVISOR DOPING from Last 3 Months Family History Medical History Relation Name Comments Stroke Father Heart Attack Paternal Grandfather Relation Name Status Comments Father Paternal Grandfather Social History Tobacco Use Types Packs/Day Years Used Date Smoking Tobacco: Never Smokeless Tobacco: Never Tobacco Cessation:Counseling Given: Not Answered Alcohol Use Standard Drinks/Week Comments Not Currently 0 (1 standard drink = 0.6 oz pur e alcohol) Comments Unknown Sex and Gender Information Value Date Recorded Sex Assigned at Not on file Legal Sex Female 9:01 AM CDT Gender Identity Not on file Sexual Orientation Not on file Last Filed Vital Signs Vital Sign Reading Time Taken Comments Blood Pressure 110/62 08/20/2023 3:45 PM EYELET CUTTER Pulse 82 08/20/2023 3:45 PM EYELET CUTTER Temperature 35.2 ??C (95.4 ??F) 08/20/2023 3:45 PM CS T Respiratory Rate 16 08/20/2023 3:45 PM EYELET CUTTER Oxygen Saturation 98% 08/20/2023 3:45 PM EYELET CUTTER Inhaled Oxygen Concentration - - Weight 64.2 kg (141 lb 9.6 oz) 08/20/2023 3:45 P M EYELET CUTTER Height 165.1 cm (5' 5 ) 08/20/2023 3:45 PM EYELET CUTTER Body Mass Index 23.56 08/20/2023 3:45 PM EYELET CUTTER Plan of Treatment Health Maintenance Due Date Last Done Comments TdaP Immunization 1962 HPV/Cotest 01/17/1992 Colonoscopy 2007 Colorectal Cancer Screening 2007 Cologuard 01/17/2012 Immunochemical Fecal Occult Blood 01/17/2012 Mammogram 01/17/2012 Pneumococcal Immunization (50+ years) (1 of 1 - PCV) 01/17/2012 Zoster Immunization (1 of 2) 01/17/2012 Cervical Cancer Screening (CCS) 06/05/2020 Pap Smear 06/05/2020 06/05/2017 Influenza Immunization (#1) 03/21/202404/20, 04/24/2020, 06/22/2015, Additional history exists SARS-COV-2 Immunization (2 - season) 2024 11/03/2020, 11/03/2020 Respiratory Syncytial Virus (RSV) Immunization (Adult) (1 - 1-dose 75+ series) 2037 Hepatitis C Virus (HCV) Screening Completed 08/14/2023 Hepatitis B Immunization Aged Out No longer eligible based on patient's age to complete this topic Meningococcal Immunization (ACWY) Aged Out No longer eligible based on patient's age to complete this topic Rotavirus Immunization Aged Out No lo nger eligible based on patient's age to complete this topic Procedures Procedure Name Priority Date/Time Associated Diagnosis Comments HEPATITIS PANEL ACUTE (AHP) 08/14/2023 12:00 AM EYELET CUTTER from Last 3 Months or Most Recently Relevant to Health Maintenance Results * HEPATITIS PANEL ACUTE (AHP) (08/14/2023 12:00 AM EYELET CUTTER) 08/14/2023 us Provider Scan HEMATOLOGY ORDERABLES Final Resu lt SCAN from Last 3 Months or Most Recently Relevant to Health Maintenance Insurance [facility] Care Teams Mercury Washer Relationship Specialty Start Date End Date Johanna Shaw MD [address] [place] [address] PCP - General Internal Medicine 02/20/22 Corinne Branch, STUDENT ACTIVITIES DIRECTOR, SUPERVISOR DOPING [address] [place] [address] Nurse Practitioner Advanced Practice Nurse 03/22/22
--- OUTSIDE RECORDS SUMMARY | 2024-08-25 13:12 | XMS_ITS | Encounter Summary ---
Author Organization [facility] Healthcare Address [address] [place] [address] Care Team Providers Care Medical Or Surgical Instrument Maker Name Role Phone Griselda Shaw MD Primary Care Provide r Encounter Details Date Type Department Care Team (Late st Contact Info) Description 01/24/2022 Telephone [facility] Radiology [address] [place] [address] Griselda Shaw MD [address] [address] Social History Tobacco Use Types Packs/Day Years Used Date Smoking Tobacco: Former Smokeless Tobacco: Never Comments:30 years ago AUDIT-C Answer Date Recorded Q1: How often do you have a drink containing alc ohol? Never 01/25/2022 Average Number of Drinks Not on file 022 Q3: How often do you have si x or more drinks on one occasion? Never 01/25/2022 Comments No Sex and Gender Information Value Date Recorded Sex Assigned at Not on file Legal Sex Female 3:01 AM RESTAURANT CREW MEMBER Gender Identity Not on file Sexual Orientation Not on file documented as of this encounter Plan of Treatment Not on file documented as of this encounter Visit Diagnoses Not on filedocumented in this encounter Care Teams Medical Or Surgical Instrument Maker Relationship Specialty Start Date End Date Griselda Shaw MD [address] [facility] [address] [place] [address] PCP - General 08/31/18 documented as of this encounter
--- OUTSIDE RECORDS SUMMARY | 2024-08-25 13:12 | XMS_ITS | Encounter Summary ---
Author Organization [facility] Address [facility] [place] [address] Care Team Providers Care Station Baggage Agent Name Role Phone Johanna Shaw MD Primary Care Provider Encounter Details Date Type Department Care Team (Late st Contact Info) Description 06/19/2020 Telephone [facility], [place] [address] Tyron Joe MD [address] [place] [address] OF ALLERGY[place] [address] Social History Tobacco Use Types Packs/Day Years Used Date Smoking Tobacco: Never Assessed Sex and Gender Information Value Date Recorded Sex Assigned at Not on file Gender Identity Not on file Sexual Orientation Not on file documented as of this encounter Plan of Treatment Not on file documented as of this encounter Visit Diagnoses Not on filedocumented in this encounter Care Teams Station Baggage Agent Relationship Specialty Start Date End Date Johanna Shaw MD [address] [facility] [address] [place] [address] PCP - General 03/16/20 documented as of this encounter
--- OUTSIDE RECORDS SUMMARY | 2024-08-25 13:12 | XMS_ITS | Encounter Summary ---
Author Organization [facility] Address [facility] [place] [address] Care Team Providers Care Profile Trimmer Name Role Phone Johanna Shaw MD Primary Care Provider Encounter Details Date Type Department Care Team (Late st Contact Info) Description 12/20/2020 Telephone [facility] [address] [place] [address] Tyron Joe MD [address] OF ALLERGY/[place] [address] Social History Tobacco Use Types Packs/Day Years Used Date Smoking Tobacco: Never Assessed Sex and Gender Information Value Date Recorded Sex Assigned at Not on file Gender Identity Not on file Sexual Orientation Not on file documented as of this encounter Patient Instructions * Patient Instructions* Laurita Rodriguez - 12/20/2020 11:11 AM CDT Patient needs refill on Symbicort inhaler [facility] be [facility] to [facility] [phone]. Also Sheba has had a lot of hair loss since early November. 3 months after she had COVID. Question Is this a hormonal thing? Thank you documented in this encounter Miscellaneous Notes * Telephone Encounter - Marissa Amaya RN - 12/20/2020 2:20 PM CDT Laurita Rodriguez routed conversation to [facility] 203 Nurse Staff; Tyron Joe MD 3 hours ago (11:14 AM) Laurita Rodriguez 3 hours ago (11:14 AM) KE Patient needs refill on Symbicort inhaler to be sent to [facility] [phone]. ?? Also Sheba has had a lot of hair loss since early November. 3 months after she had COVID. Question Is this a hormonal thing? ?? Thank you Documentation Refill Request Sheba Davenport KAMRAN: 06/28/20 NOV scheduled: 01/11/2021 LRF: 10/12/20 Qty Disp: 1 # of refills: 5 Allergies: Allergies Allergen Reactions ??? Latex Unknown ??? Amoxicillin Unknown ??? Povidone Iodine Unknown ??? Sulfa Drugs Unknown ??? Erythromycin Unknown Pended Medication Order: Requested Prescriptions Pending Prescriptions Disp Refills ??? budesonide-formoterol (SYMBICORT) 80-4.5 MCG/ACT inhaler 1 Inhaler 5 Sig: Inhale 2 (two) puffs by mouth 2 times daily documented in this encounter Plan of Treatment Not on file documented as of this encounter Visit Diagnoses Diagnosis Mild persistent reactive airway disease without complication (HCC) documented in this encounter Care Teams Profile Trimmer Relationship Specialty Start Date End Date Johanna Shaw MD [address] [id number] PCP - General 03/16/20 documented as of this encounter
== END 2024-08-25 11:40 | disposition home or self-care (01) ==
LOC: ANHLAB 11:40
PROVIDERS: PCP Internal Medicine; Visit Provider Internal Medicine
DX: R50.9 Fever, unspecified (principal); Z20.822 Contact with and (suspected) exposure to COVID-19
CPT/HCPCS: 87636; 87651

== ENCOUNTER 2024-10-06 08:21 | Outpatient (CLI) | payer OTHER, SELFPAY ==
--- NOTE | ~2024-10-06 | MMUS_ITS ---
EXAMINATION: US breast RT limited, MM diagnostic delores BI w elvis HISTORY: Palpable superficial nodule with discoloration of the right breast since August TECHNIQUE: Additional 3-D tomosynthesis images of the breasts were performed and synthetic 2-D images were generated. CAD analysis was submitted and interpreted. High resolution Limited right breast ult rasound was performed. COMPARISON: Comparison to multiple prior studies sequentially, with oldest reviewed study dated 10/06. BREAST PARENCHYMAL COMPOSITION: Not dense: There are scattered areas of fibroglandular density. FINDINGS: MAMMOGRAPHIC FINDINGS: There are no suspicious masses, calcifications or architectural distortion in either breast to sugges t malignancy. ULTRASOUND: Limited right breast ultrasound: At 2:00, 11 cm from the nipple there is trace subcutaneous fluid denise suring up to 3 mm maximum dimension corresponding to the palpable finding. This is most likely posttr aumatic or infectious. IMPRESSION: 1. Trace fluid of the right breast in the area of palpable concern measuring up to 3 mm in the subcut aneous tissues, located at 2:00, 11 cm from the nipple. This is most likely benign. 2. Recommend 3 month follow-up Limited right breast ultrasound. BI-RADS category 3, probably benign findings. Reviewed, dictated and finalized at location [] IMPRESSION: 1. Trace fluid of the right breast in the area of palpable concern measuring up to 3 mm in the subcutaneous tissues, located at 2:00, 11 cm from the nipple. T his is most likely benign. 2. Recommend 3 month follow-up Limited right breast ultrasound. BI-RADS category 3, probably benign findings.
== END 2024-10-06 08:22 | disposition home or self-care (01) ==
LOC: MICIMG 08:22
PROVIDERS: PCP Internal Medicine; Visit Provider Obstetrics & Gynecology Gynecology
DX: R92.8 Other abnormal and inconclusive findings on diagnostic imaging of breast (principal); N63.12 Unspecified lump in the right breast, upper inner quadrant
CPT/HCPCS: 76642; 77062; 77066; G0279

== ENCOUNTER 2025-01-06 10:11 | Outpatient (CLI) | payer OTHER, SELFPAY ==
--- NOTE | ~2025-01-06 | US_ITS ---
US breast RT limited 01/06/2025 10:34 Indication: Follow-up fluid subcutaneous tissues right breast Procedure: High-resolution Limited ultrasound of the right breast at 2:00, 11 cm from the nipple Comparison: 09/28/2024 Findings: Normal heterogeneous soft tissue. No discrete fluid collection is identified. Impression: 1: Normal limited ultrasound of the right breast in the area of previous sonographic abnormality. Routine yearly screening mammogram and regular clinical breast examination are recommended. BI-RADS CATEGORY 1 - NEGATIVE Reviewed, dictated and finalized at location A. Impression: 1: Normal limited ultrasound of the right breast in the area of previous sonogr aphic abnormality. Routine yearly screening mammogram and regular clinical breast examination are recommended. BI-RADS CATEGORY 1 - NEGATIVE
== END 2025-01-06 10:12 | disposition home or self-care (01) ==
LOC: MICIMG 10:12
PROVIDERS: PCP Internal Medicine; Visit Provider Obstetrics & Gynecology Gynecology
DX: R92.8 Other abnormal and inconclusive findings on diagnostic imaging of breast (principal)
CPT/HCPCS: 76642

== ENCOUNTER 2025-02-07 15:29 | Outpatient (CLI) | payer OTHER, SELFPAY ==
--- NOTE | ~2025-02-07 | XR_ITS ---
EXAMINATION: XR ribs RT 2V w CXR 2V Exam Date/Time: 02/07/2025 15:35 CDT HISTORY: Pleurodynia Comparison: None available. RESULT: Lines, tubes, and devices: None. Lungs and pleura: Clear. Cardiothymic silhouette: Calcified right infrahilar node, otherwise normal. Other: No acute osseous or upper abdominal finding. IMPRESSION: No acute cardiopulmonary process. No acute osseous finding in the right ribs. Reviewed, dictated and finalized at location K.
== END 2025-02-07 15:30 | disposition home or self-care (01) ==
LOC: MICIMG 15:30
PROVIDERS: PCP Internal Medicine; Visit Provider Internal Medicine
DX: R07.81 Pleurodynia (principal)
CPT/HCPCS: 71046; 71100

== ENCOUNTER 2025-04-15 12:23 | Outpatient (CLI) | payer OTHER, SELFPAY ==
--- NOTE | ~2025-04-15 | XR_ITS ---
Examination: XR knee LT 3V, XR knee RT 3V Clinical History: Pain in left and right knee Comparison: None Technique: 3 views left knee, 3 views right knee Findings/impression: No acute abnormality either knee Left knee: 1. No fracture, dislocation, or effusion left knee. 2. Mild medial compartment joint space narrowing. 3. Moderate patellofemoral compartment joint space narrowing versus positioning on sunrise view. 4. No significant degenerative changes. Right knee: 1. No fracture, dislocation, or effusion right knee. 2. Mild medial compartment joint space narrowing. 3. Moderate patellofemoral compartment joint space narrowing versus positioning sunrise view. 4. No significant degenerative changes. Reviewed, dictated and finalized at location R.
== END 2025-04-15 12:24 | disposition home or self-care (01) ==
LOC: MICIMG 12:24
PROVIDERS: PCP Internal Medicine; Visit Provider Internal Medicine
DX: M25.862 Other specified joint disorders, left knee (principal); M22.2X2 Patellofemoral disorders, left knee; M25.861 Other specified joint disorders, right knee
CPT/HCPCS: 73562